=== PATIENT | female | born 1940 | race Caucasian/White ===

== ENCOUNTER 2016-11-29 16:46 | Emergency (ER) | payer MEDICARE, OTHER ==
[2016-11-29 17:09] LABS: Hematocrit 36 % (35-47); Hemoglobin 11.3 g/dl (12.0-16.0); Mean Corpuscular HGB Conc 32 g/dl (31-36); Mean Corpuscular Hemoglobin 22 pg (27-31); Mean Corpuscular Volume 70 fL (80-97); Mean Platelet Volume 9 um3 (7.4-10.4); Red Blood Count 5.16 10^6/ul (4.0-5.4); Red Cell Distribution Width 23 % (10.5-15); White Blood Count 13.2 10^3/ul (3.5-10.8)
[2016-11-29 17:10] LABS: Add Diff/Slide Review? Slide Review Added; Comments Flag Yes
[2016-11-29] MEDS ORDERED: Albuterol/Ipratropium NEB.SOL* Albuterol 2.5 MG/Ipratropium 0.5 MG 3 ML INH ONE (17:15)
[2016-11-29 17:27] LABS: Albumin 3.8 g/dL (3.2-5.2); BUN/Creatinine Ratio 19.3 (8-20); EGFR African American 86.2 (>60); Globulin 2.8 g/dL (2-4); Magnesium 1.9 mg/dL (1.9-2.7); Total Bilirubin 0.7 mg/dL (0.2-1.0); Total Protein 6.6 g/dL (6.4-8.9)
[2016-11-29 17:30] LABS: Troponin I 0.05 ng/mL (<0.04)
--- NOTE | 2016-11-29 17:41 | RAD ---
INDICATION: Midsternal chest pain COMPARISON: Most recent comparison chest x-rays dated June 05, 2016 TECHNIQUE: Single AP portable view of the chest was obtained. FINDINGS: Image quality is compromised due to the relative inferiority of a portable chest x-ray. Stable postoperative findings include a left upper chest cardiac pacemaker with 2 leads overlying the heart, plate and screw fixator overlying the cervical spine and transpedicular fixation rods overlying the thoracic spine. The heart and mediastinum exhibit normal size and contour. The lungs are grossly clear. There is bibasilar costophrenic angle blunting, slightly worse when compared to the previous chest x-ray. Visualized bones are normal for the patient's age. IMPRESSION: Slight increase in the size of the costophrenic angle blunting could be seen with worsening small pleural effusions.
[2016-11-29 17:54] LABS: Microcytosis 1+
[2016-11-29 17:59] LABS: TSH (Thyroid Stimulating Horm) 2.31 mcIU/mL (0.34-5.60)
[2016-11-29] MEDS ORDERED: Diltiazem IV VIAL* 125 MG in D5W 100 ML BAG* 100 ML IV ONE (18:25)
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
[2016-11-29 19:44] VITALS: BP 92/73
--- NOTE | 2016-11-30 01:49 | CONS ---
CONSULTATION REPORT: DATE OF CONSULT: 11/29/16 - EMERGENCY DEPT PRIMARY CARE PROVIDER: Dr. Quiroga. HEALTHCARE PROXY: Olivier Kuo, her son. CODE STATUS: Full. SERVICE REQUESTING CONSULTATION: ED, Dr. Schroeder. REASON FOR CONSULTATION: Tachycardia, elevated troponin. SOURCE OF INFORMATION: History obtained from interview with the patient and review of past medical records. RELIABILITY: Fair. HISTORY OF PRESENT ILLNESS: This is a 76-year-old female with past medical history of parkinsonism, although not definitely Parkinson's disease, atrial fibrillation, COPD on home oxygen 2 L when she does use it, LEILANI, been in her usual state of health notes that she fell 1 to 2 weeks ago and has been experiencing sharp substernal chest pain. Today, it lasted for approximately an hour and a half associated with what she describes as a little difficulty breathing, although no diaphoresis, no radiation, no nausea, vomiting, syncope, palpitations. She decided to present to the emergency room because the pain had continued and she decided to go get to the bottom of it. She is difficult to obtain majority of the history. She indicates, "I don't pay much attention" to the majority of her symptoms. Upon meeting this author, she indicated that she wanted to go home and she would not stay for an admission no matter what the conclusion of my evaluation was. PAST MEDICAL HISTORY: COPD, on home oxygen; parkinsonism; atrial fibrillation, on Coumadin; type 2 diabetes; hypothyroidism; depression; LEILANI; permanent pacemaker. Chart review indicates dementia, history of left hip ORIF and history of right hip ORIF. MEDICATIONS: The patient cannot indicate if these medications are active; however, had been reconciled inside of our computer. 1. Verapamil 120 mg 3 times daily. 2. MiraLAX 17 g daily. 3. Metoprolol XL 50 mg daily. 4. Senna one tab daily as needed. 5. Atorvastatin 20 mg daily. 6. Albuterol 2 puffs inhaled every 4 hours. 7. Zoloft 100 mg daily. 8. Potassium chloride 10 mEq daily. 9. Lasix 20 mg daily. 10. Coumadin 3 mg Sunday, Sunday, Sunday and 1.5 mg Sunday, Sunday, , Sunday. 11. Tiotropium one cap inhaled daily. 12. Omeprazole 20 mg daily. 13. Nystatin 5 mL 4 times daily. 14. Synthroid 50 mcg daily. 15. Sinemet one tab 4 times daily. 16. Tramadol 50 mg 4 times daily as needed. ALLERGIES: GABAPENTIN, PENICILLIN, AZITHROMYCIN, FENTANYL and RELATED, MIDAZOLAM. FAMILY HISTORY: Mother with CVA and atrial fibrillation, daughter with type 2 diabetes, and father with colon cancer. SOCIAL HISTORY: Quit tobacco 40 years prior, has 5-pack year history. No alcohol or illicits. Lives with her son. REVIEW OF SYSTEMS: Feels fatigued, otherwise no chest pain, shortness of breath , nausea, vomiting, lightheadedness, changes in vision, headaches, abdominal pain, diarrhea, constipation, cough, fevers, chills, night sweats, changes in weight. All other systems reviewed and negative. PHYSICAL EXAM: Vitals in the emergency room: 107/61, heart rate ranging from 102 to 120, although significant artifact given the patient's tremor, respiratory rate is 16, when seen by this author, T-max 98.5, 94% on room air. Sitting up in bed, interactive, no apparent distress. Oropharynx is clear, has moist mucous membranes. No thrush. Nonelevated JVD. No cervical or supraclavicular lymphadenopathy. She has an irregularly irregular heart rate that is tachycardic. Her lungs are clear to auscultation without rales, rhonchi , or wheezes. Her abdomen is soft, nontender, nondistended. Extremities are warm and well perfused without clubbing, cyanosis, or edema. She is alert and oriented x3 Cranial nerves II through XII are intact. She has a course tremor in the upper and lower extremities. She has no apparent agitation, anxiety, or depression. DIAGNOSTIC STUDIES/LAB DATA: Labs reviewed: White blood cell count 13.2. She has 79.9% neutrophils, hemoglobin 11.3, platelets 187. INR is 2.8. Potassium 4.0, BUN 16, creatinine 0.83, lactic acid 0.8, magnesium 1.9. Troponin I of 0.05 with a BNP 214. TSH is 2.3. Data reviewed: Chest x-ray, impression: Slightly increase in the size of the costophrenic angle blunting could be seen with worsening small pleural effusions compared to prior exam. EKG: There is a coarse tremor, is irregular , apparent atrial fibrillation, normal limit axis, late R-wave progression, no ST or T-wave changes. ASSESSMENT AND PLAN: This is a 76-year-old female with past medical history of atrial fibrillation, therapeutic on Coumadin, history of chronic obstructive pulmonary disease, type 2 diabetes, obstructive sleep apnea, presenting to the hospital with substernal chest pain in the setting of recent fall. In the setting of tachycardia as well as elevated troponin, I do believe this patient warrants continued observation to rule out myocardial infarction as well as better control of her heart rate. I discussed this at length with the patient. She currently is refusing hospital stay. We discussed at length the risks of leaving hospital including but not limited to myocardial infarction, sudden loss of consciousness, syncope, other broken bones, and . She is able to reiterate these risks and notes that she is not afraid of dying and does not want to stay in the hospital for continued treatment and management of her current medical conditions. I note that her health-care proxy is her son and I asked if I could discuss her decision with her son. She said I could talk to her son; however, explicitly forbade me from indicating my impression that she should remain hospitalized; therefore, I did not contact and discuss my findings with her son. I did discuss with the patient that leaving the hospital at this time would warrant leaving against medical advice, which she found an acceptable alternative to staying in the hospital. In lieu of staying in the hospital, the patient will leave AMA. I discussed the results of my interaction with Dr. Schroeder, who is in agreement with this author that the patient should remain hospitalized. However, I do believe she has full capacity at this time to make this decision and she will leave against medical advice. Extensive return to the emergency room instructions were given to the patient including worsening of symptoms, including chest pain, shortness of breath, nausea, vomiting, lightheadedness, palpitations, loss of consciousness, near loss of consciousness, or inability to obtain or tolerate medications. She acknowledged understanding. TIME SPENT: Greater than 60 minutes was spent in the consultation of this patient; greater than half was spent [id number] with the patient. CC: Dr. Quiroga * [id number]/CPS #: [id number] MTDD
== END 2016-11-29 19:10 | disposition left against medical advice (07) ==
LOC: ED 16:46
DX: I48.91 Unspecified atrial fibrillation (principal); J44.1 Chronic obstructive pulmonary disease with (acute) exacerbation; R07.9 Chest pain, unspecified; R06.02 Shortness of breath; R42 Dizziness and giddiness; Z87.891 Personal history of nicotine dependence; Z79.01 Long term (current) use of anticoagulants; Z53.21 Procedure and treatment not carried out due to patient leaving prior to being seen by health care provider
CPT/HCPCS: 36415; 71010; 80053; 82550; 82553; 83605; 83735; 83880; 84443; 84484; 85025; 85610; 93005; 94640; 94760; 99284; A9270-GY

== ENCOUNTER 2016-11-30 13:40 | Emergency (ER) | payer MEDICARE, OTHER ==
[2016-11-30 14:17] LABS: Hematocrit 38 % (35-47); Mean Corpuscular HGB Conc 32 g/dl (31-36); Mean Corpuscular Hemoglobin 22 pg (27-31); Mean Platelet Volume 9 um3 (7.4-10.4); Red Blood Count 5.39 10^6/ul (4.0-5.4); White Blood Count 10.5 10^3/ul (3.5-10.8)
[2016-11-30 14:36] LABS: Comments Flag Yes
--- NOTE | 2016-11-30 14:36 | RAD ---
INDICATION: Chest pain. COMPARISON: Comparison is made with prior studies from June 05, 2016 and November 29, 2016. TECHNIQUE: A portable view of the chest was obtained. FINDINGS: The heart is mildly enlarged and unchanged. There is a dual-chamber transvenous pacemaker present. The lungs are clear. There is a small left pleural effusion which appears unchanged. IMPRESSION: SMALL LEFT PLEURAL EFFUSION, UNCHANGED.
[2016-11-30 14:37] LABS: Mean Corpuscular Volume 70 fL (80-97); Red Cell Distribution Width 22 % (10.5-15)
[2016-11-30 14:38] LABS: ALT < 3 U/L (7-52); AST 14 U/L (13-39); Albumin 3.9 g/dL (3.2-5.2); Alkaline Phosphatase 84 U/L (34-104); Anion Gap 6 mmol/L (2-11); BUN/Creatinine Ratio 19.5 (8-20); Blood Urea Nitrogen 16 mg/dL (6-24); CO2 Carbon Dioxide 30 mmol/L (22-32); Calcium 9.2 mg/dL (8.6-10.3); Chloride 102 mmol/L (101-111); Creatine Kinase 41 U/L (10-223); EGFR African American 87.4 (>60); Globulin 3.1 g/dL (2-4); Glucose 93 mg/dL (70-100); Sodium 138 mmol/L (133-145)
[2016-11-30 14:58] LABS: T4 7.52 g/dL (6.09-12.23)
[2016-11-30 14:59] LABS: TSH (Thyroid Stimulating Horm) 1.91 mcIU/mL (0.34-5.60)
[2016-11-30 18:32] VITALS: BP 125/72
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
== END 2016-11-30 18:49 | disposition home or self-care (01) ==
LOC: ED 13:40
DX: R07.89 Other chest pain (principal); J90 Pleural effusion, not elsewhere classified; R06.02 Shortness of breath; R42 Dizziness and giddiness; R21 Rash and other nonspecific skin eruption; Z87.891 Personal history of nicotine dependence
CPT/HCPCS: 36415; 71010; 80053; 82550; 82553; 83605; 83735; 83880; 84436; 84443; 84484; 85025; 85610; 85730; 87529; 93005; 99284

== ENCOUNTER 2017-02-21 04:55 | Emergency (ER) | payer OTHER ==
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
[2017-02-21 06:26] VITALS: BP 137/67
--- NOTE | 2017-02-21 07:52 | RAD ---
INDICATION: Right shoulder pain after a fall from wheelchair COMPARISON: Similar radiographic series December 01, 2015 TECHNIQUE: 5 views of the right shoulder were obtained. FINDINGS: Similar to the previous radiograph, degenerative changes of the right shoulder include sclerotic narrowing of the articulating surface. There is marginal osteophyte formation mostly along the inferior margin of the right humeral head. Mild osteophyte formation is seen at the acromioclavicular joint. The bones are otherwise adequately corticated and appropriately aligned. IMPRESSION: DEGENERATIVE CHANGES OF THE RIGHT SHOULDER SIMILAR IN APPEARANCE TO THE PREVIOUS RADIOGRAPH WITHOUT ACUTE FRACTURE OR DISLOCATION. If the patient's symptoms persist, follow-up imaging is recommended.
--- NOTE | 2017-02-21 07:52 | RAD ---
HISTORY: Fall, trauma. No other history is provided COMPARISONS: January 14, 2016 TECHNIQUE: Multiple contiguous axial CT scans were obtained of the head without intravenous contrast. FINDINGS: HEMORRHAGE/INFARCT: There is no hemorrhage or acute infarct. MASSES/SHIFT: There is no mass or shift. EXTRA-AXIAL SPACES: There are no extra-axial fluid collections. SULCI AND VENTRICLES: The sulci and ventricles are normal in size and position for the patient's stated age. CEREBRUM: There are no focal parenchymal abnormalities. BRAINSTEM: There are no focal parenchymal abnormalities. CEREBELLUM: There are no focal parenchymal abnormalities. VESSELS: The vessels are grossly normal. PARANASAL SINUSES: The paranasal sinuses are clear. ORBITS: The orbits are unremarkable. BONES AND SOFT TISSUE: No bone or soft tissue abnormalities are noted. OTHER: None IMPRESSION: NO ACUTE INTRACRANIAL PATHOLOGY.
--- NOTE | 2017-02-21 07:54 | RAD ---
INDICATION: Trauma, pelvic pain. COMPARISON: Comparison is made with a prior x-ray study of the pelvis and left hip from April 05, 2016. TECHNIQUE: An AP view of the pelvis was obtained. FINDINGS: The patient is status post operative reduction of bilateral subcapital femoral neck fractures. There are 3 surgical pins present within each of the proximal femurs. No acute fracture is seen. There is moderate bilateral osteoarthritic change in the hips. The patient is status post posterior spinal fusion of the lumbar spine which is partially visualized on this study. Note is made of multiple pedicle screws. IMPRESSION: POSTSURGICAL CHANGES, NO EVIDENCE FOR ACUTE FRACTURE. IF THE PATIENT'S SYMPTOMS PERSIST RECOMMEND FOLLOW-UP IMAGING.
== END 2017-02-21 06:47 | disposition home or self-care (01) ==
LOC: ED 04:55
DX: S40.011A Contusion of right shoulder, initial encounter (principal); S70.01XA Contusion of right hip, initial encounter; S09.90XA Unspecified injury of head, initial encounter; W05.0XXA Fall from non-moving wheelchair, initial encounter; Y93.9 Activity, unspecified; Y92.9 Unspecified place or not applicable; Y99.9 Unspecified external cause status
CPT/HCPCS: 70450; 72170; 99283

== ENCOUNTER 2017-04-07 11:02 | Emergency (ER) | payer OTHER ==
[2017-04-07 11:44] LABS: Hematocrit 37 % (35-47); Hemoglobin 11.7 g/dl (12.0-16.0); Mean Corpuscular HGB Conc 32 g/dl (31-36); Mean Corpuscular Hemoglobin 25 pg (27-31); Mean Corpuscular Volume 78 fL (80-97); Mean Platelet Volume 10 um3 (7.4-10.4); Red Blood Count 4.69 10^6/ul (4.0-5.4); Red Cell Distribution Width 18 % (10.5-15); White Blood Count 8.1 10^3/ul (3.5-10.8)
[2017-04-07 11:48] LABS: Urine Bacteria 1+ (Absent); Urine Bilirubin Negative (Negative); Urine Glucose Negative (Negative); Urine Nitrite Positive (Negative)
[2017-04-07 12:03] LABS: Albumin 3.9 g/dL (3.2-5.2); BUN/Creatinine Ratio 12.8 (8-20); C Reactive Protein 5.02 mg/L (< 5.00); Calcium 9.1 mg/dL (8.6-10.3); EGFR African American 92.6 (>60); Globulin 2.7 g/dL (2-4); Potassium 3.8 mmol/L (3.5-5.0); Total Bilirubin 0.7 mg/dL (0.2-1.0); Total Protein 6.6 g/dL (6.4-8.9)
[2017-04-07] MEDS ORDERED: Ciprofloxacin 400MG IVPREMIX(* 400 MG/200 ML BAG IVPB ONE (12:12)
[2017-04-07 12:20] LABS: TSH (Thyroid Stimulating Horm) 1.79 mcIU/mL (0.34-5.60)
[2017-04-07] MEDS ORDERED: Ketorolac INJ* 30 MG/ML 1 ML VIAL IV PUSH ONE (13:02)
--- NOTE | 2017-04-07 13:32 | RAD ---
Indication: Chest pain, right shoulder pain. 4 views of the right shoulder demonstrates degenerative changes of the glenohumeral joint without evidence of dislocation. No definite fractures identified. When compared to previous exam of February 21, 2017 no significant change is noted. IMPRESSION: No fracture. Degenerative changes of the glenohumeral joint.
--- NOTE | 2017-04-07 13:34 | RAD ---
Indication: Bilateral knee pain Single AP standing, tunnel, patellofemoral views and lateral views of both knees are reviewed. The right knee demonstrates joint space narrowing in the lateral part. Mild valgus deformity is noted. Osteophyte formation is noted. No joint effusion in the left knee is noted. Degenerative changes of the patellofemoral joint is present. The left knee demonstrates joint space narrowing in the lateral compartment with slight lateral subluxation of the tibia. Chondrocalcinosis is noted. Valgus deformity is noted. No fracture is noted. Small joint effusion is noted. IMPRESSION: Degenerative changes of the lateral compartment of both knees. Degenerative changes of the patellofemoral joint. No fracture is identified.
--- NOTE | 2017-04-07 13:37 | RAD ---
Indication: Chest pain. 2 views of the chest are reviewed. Pacemaker leads are in place. Heart is of normal size and configuration. Hyperinflated lung mario are noted. Small left pleural effusion is noted. Posterior rodding is noted. IMPRESSION: Pacemaker leads in place. Small left pleural effusion.
[2017-04-07 16:13] VITALS: BP 123/68
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
== END 2017-04-07 16:11 | disposition home or self-care (01) ==
LOC: ED 11:02
DX: N39.0 Urinary tract infection, site not specified (principal); M25.562 Pain in left knee; M25.561 Pain in right knee; I10 Essential (primary) hypertension; Z95.810 Presence of automatic (implantable) cardiac defibrillator; E11.9 Type 2 diabetes mellitus without complications; I48.91 Unspecified atrial fibrillation; J44.9 Chronic obstructive pulmonary disease, unspecified; Z79.01 Long term (current) use of anticoagulants; Z79.899 Other long term (current) drug therapy; Z88.0 Allergy status to penicillin; Z88.1 Allergy status to other antibiotic agents; Z88.5 Allergy status to narcotic agent; Z88.8 Allergy status to other drugs, medicaments and biological substances; Z87.891 Personal history of nicotine dependence
CPT/HCPCS: 36415; 71020; 80053; 81003; 81015; 84443; 84484; 85025; 86140; 87086; 93005; 96365; 96375; 99283; J0744; J1885

== ENCOUNTER 2017-04-19 13:57 | Emergency (ER) | payer OTHER ==
--- NOTE | 2017-04-19 15:01 | RAD ---
INDICATION: Altered mental status. COMPARISON: Comparison is made with a prior CT of the brain from February 21, 2017. TECHNIQUE: Contiguous axial sections of the brain were obtained from the skull base to the vertex without contrast. FINDINGS: The ventricles, cisterns and sulci are enlarged consistent with diffuse atrophy. No significant focal abnormality or mass effect is seen. There is no evidence for hemorrhage. No significant focal osseous abnormality is seen. The visualized portion of the paranasal sinuses and mastoid air cells appear clear. IMPRESSION: NO EVIDENCE FOR GROSS ACUTE INFARCT, MASS EFFECT OR HEMORRHAGE.
[2017-04-19 16:41] LABS: Hematocrit 38 % (35-47); Hemoglobin 11.9 g/dl (12.0-16.0); Mean Corpuscular HGB Conc 32 g/dl (31-36); Mean Corpuscular Hemoglobin 24 pg (27-31); Mean Corpuscular Volume 77 fL (80-97); Mean Platelet Volume 10 um3 (7.4-10.4); Red Blood Count 4.87 10^6/ul (4.0-5.4); Red Cell Distribution Width 18 % (10.5-15); White Blood Count 8.1 10^3/ul (3.5-10.8)
[2017-04-19 17:20] LABS: Calcium 9.5 mg/dL (8.6-10.3); EGFR African American 87.4 (>60); Globulin 2.8 g/dL (2-4); Potassium 3.4 mmol/L (3.5-5.0); Total Bilirubin 0.5 mg/dL (0.2-1.0); Total Protein 6.8 g/dL (6.4-8.9)
[2017-04-19 18:54] LABS: Urine Bacteria 1+ (Absent); Urine Bilirubin Negative (Negative); Urine Glucose Negative (Negative); Urine Nitrite Negative (Negative)
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
[2017-04-19 20:00] VITALS: BP 121/69
== END 2017-04-19 20:10 | disposition home or self-care (01) ==
LOC: ED 13:57
DX: F03.90 Unspecified dementia, unspecified severity, without behavioral disturbance, psychotic disturbance, mood disturbance, and anxiety (principal); F05 Delirium due to known physiological condition; E11.9 Type 2 diabetes mellitus without complications; E07.9 Disorder of thyroid, unspecified; I10 Essential (primary) hypertension; Z95.0 Presence of cardiac pacemaker; Z79.01 Long term (current) use of anticoagulants; J44.9 Chronic obstructive pulmonary disease, unspecified; K59.00 Constipation, unspecified; Z88.0 Allergy status to penicillin; F41.9 Anxiety disorder, unspecified; F32.9 Major depressive disorder, single episode, unspecified; Z88.8 Allergy status to other drugs, medicaments and biological substances; Z87.891 Personal history of nicotine dependence
CPT/HCPCS: 36415; 70450; 80053; 81003; 81015; 83605; 84484; 85025; 87077; 87086; 87186; 93005; 99283

== ENCOUNTER 2018-02-16 23:39 | Observation (INO) | payer OTHER ==
[2018-02-17] MEDS ORDERED: Albuterol/Ipratropium NEB.SOL* Albuterol 2.5 MG/Ipratropium 0.5 MG 3 ML INH ONE ×2 (00:48→00:51)
[2018-02-17] MEDS ORDERED: methylPREDNISolone 125 MG* 2 ML VIAL IV ONE (00:48)
[2018-02-17] MEDS ORDERED: Azithromycin IV(*) 500 MG in NS 0.9% 250 ML* 250 ML IVPB ONE (00:50)
[2018-02-17 01:04] LABS: ABS Basophils 0.1 10^3/ul (0-0.2); ABS Eosinophils 0.2 10^3/ul (0-0.6); ABS Lymphocytes 1.6 10^3/ul (1.0-4.8); ABS Monocytes 0.6 10^3/ul (0-0.8); ABS Neutrophils 6.2 10^3/ul (1.5-7.7); ABS Nucleated RBC 0 10^3/ul; Eosinophil % 2.1 % (0-6); Hematocrit 38 % (35-47); Hemoglobin 12.3 g/dl (12.0-16.0); Lymphocyte % 18.2 % (25-47); Mean Corpuscular HGB Conc 33 g/dl (31-36); Mean Corpuscular Hemoglobin 25 pg (27-31); Mean Corpuscular Volume 76 fL (80-97); Mean Platelet Volume 9.2 um3 (7.4-10.4); Nucleated Red Blood Cells % 0; Platelet Count 203 10^3/ul (150-450); Red Blood Count 5.01 10^6/ul (4.00-5.40); Red Cell Distribution Width 19 % (10.5-15); White Blood Count 8.7 10^3/ul (3.5-10.8)
[2018-02-17 01:13] LABS: INR 2.65 (0.77-1.02)
[2018-02-17 01:21] LABS: EGFR Non-African American 69.7 (>60)
[2018-02-17] MEDS ORDERED: Ondansetron ODT TAB* 4 MG SL PRN (01:44)
[2018-02-17] MEDS ORDERED: Ondansetron ODT TAB* 4 MG ONE (02:01)
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
[2018-02-17] MEDS ORDERED: Senna TAB PO PRN (03:36)
[2018-02-17] MEDS ORDERED: Nystatin TOP POWDER* 15 GM BTL TOPICAL PRN (03:36)
[2018-02-17] MEDS ORDERED: traMADol TAB* 50 MG PO PRN (03:36)
[2018-02-17] MEDS: methylPREDNISolone SOD 40 MG* 1 ML VIAL IV SCH ×2 (03:41→16:51)
[2018-02-17] MEDS ORDERED: Azithromycin IV(*) 500 MG in D5W 250 ML BAG* 250 ML IVPB SCH (04:00)
[2018-02-17] MEDS ORDERED: Albuterol 2.5 MG/3 ML NEB.SOL* (0.083%) INH PRN (04:26)
[2018-02-17] MEDS: Levothyroxine TAB* 50 MCG TAB PO SCH (05:02)
[2018-02-17] MEDS: cefTRIAXone(*) 1 GM in NS 0.9% 50 ML* 50 ML IVPB SCH (05:02)
[2018-02-17] MEDS ORDERED: Heparin VIAL(*) 5000 UNITS/ML VIAL (FIVE THOUSAND) SUBCUT SCH (06:00)
[2018-02-17 06:34] LABS: INR 2.63 (0.77-1.02)
[2018-02-17 06:59] LABS: EGFR Non-African American 67.8 (>60)
--- NOTE | 2018-02-17 07:05 | RAD ---
INDICATION: Short of breath COMPARISON: April 07, 2017 TECHNIQUE: PA and lateral dual-energy views were obtained. FINDINGS: Bones/Soft Tissues: There are no acute bony findings. There are Wu rods. There is prior cervical fusion. There is a left-sided cardiac pacemaker Cardiomediastinal: The cardiomediastinal silhouette is unchanged. The cardiac silhouette is mildly prominent. Lungs: There are no acute infiltrates. There is hyperinflation. Pleura: There are no pleural effusions. Other: None IMPRESSION: POSTOPERATIVE CHANGES. HYPERINFLATION. NO ACTIVE DISEASE.
[2018-02-17] MEDS: Budesonide NEB* 0.25 MG/2 ML NEB.SOLN INH SCH ×2 (08:49→19:12)
[2018-02-17] MEDS: Tiotropium CAP.INH* CAP.INH/18 MCG (USE ORDER SET !) INH SCH (08:51)
[2018-02-17] MEDS ORDERED: Spiriva Inhaler DEVICE* 1 EACH DEVICE INH ONE (09:00)
[2018-02-17] MEDS: Sertraline* 100 MG TAB PO SCH (09:03)
[2018-02-17] MEDS: Carbidopa/Levodop 25/100 MG TAB(*) PO SCH ×4 (09:03→20:13)
[2018-02-17] MEDS: Metoprolol Succinate XL TAB* 50 MG PO SCH (09:03)
[2018-02-17] MEDS: Furosemide TAB* 40 MG PO SCH (09:03)
[2018-02-17] MEDS: Verapamil TAB* 120 MG PO SCH ×3 (09:03→20:14)
[2018-02-17] MEDS: Omeprazole CAP* 20 MG PO SCH (09:03)
[2018-02-17] MEDS: Nystatin SUSPENSION* 100000 UNITS/ML 5 ML UDC PO SCH ×4 (09:04→20:17)
[2018-02-17] MEDS: Potassium Chlor TAB* 10 MEQ TAB.ER PO SCH (09:04)
[2018-02-17] MEDS: Polyethylene Glycol 3350* 17 GM PACKET PO SCH (09:04)
--- NOTE | 2018-02-17 10:50 | HP ---
CC: Dr. Quiroga * HISTORY AND PHYSICAL: DATE OF ADMISSION: 02/17/18 CHIEF COMPLAINT: Shortness of breath. HISTORY OF PRESENT ILLNESS: Ms. Restrepo is a 77-year-old woman with history of COPD who developed progressive shortness of breath over the last 24 hours prior to admission. She reports she has had a cough, which has been productive as well as some nausea. She also reports right-sided chest pain which is mild, may be 2 or 3/10, which has improved now in the emergency department. Earlier though she had right-sided pleuritic chest pain. She also felt feverish but did not a thermometer at home. The patient denies any sick contacts. The patient has not had any benefit from using her albuterol at home. PAST MEDICAL HISTORY: Includes, 1. COPD. 2. Parkinson's disease. 3. Hypothyroidism. 4. GERD. 5. Dementia. 6. Tachybrady syndrome, implanted pacemaker placement. 7. Restless legs syndrome. 8. Diet-controlled diabetes. PAST SURGICAL HISTORY: 1. Cervical fusion. 2. Lumbar laminectomy. 3. Bilateral ORIF of her hips. MEDICATIONS: On admission are: 1. Albuterol inhaler 2 puffs q.4 hours p.r.n. 2. Atorvastatin 20 mg p.o. q.p.m. 3. Pulmicort nebulizer 0.25 mg inhaled b.i.d. 4. Carbidopa-levodopa 25/100 one tab p.o. four times a day. 5. Furosemide 40 mg p.o. daily. 6. Levothyroxine 50 mcg p.o. q.a.m. 6. Toprol-XL 50 mg p.o. daily. 7. Metronidazole topical to her face b.i.d. 8. Mometasone topical 0.1% cream as needed. 9. Nystatin liquid 5 mL swish and swallow p.r.n. for thrush. 10. Nystatin topical powder to affected areas t.i.d. p.r.n. 11. Omeprazole 20 mg p.o. daily. 12. Potassium chloride 10 mEq p.o. daily. 13. Pramipexole 0.5 mg p.o. q.p.m. 14. Senna 1 tab p.o. daily p.r.n. constipation. 15. Sertraline 100 mg p.o. daily. 16. Spiriva 1 inhalation daily. 17. Tramadol 50 mg p.o. q.6 hours p.r.n. pain. 18. Verapamil 120 mg p.o. t.i.d. 19. Warfarin 3 mg 1 p.o. daily 1 day on week on Sundays and 1.5 mg p.o. q.p.m. on 6 days of week. 20. She has Desitin ointment as needed. ALLERGIES: AZITHROMYCIN, FENTANYL, GABAPENTIN, MIDAZOLAM and PENICILLIN. FAMILY HISTORY: Notable for father of [place]. Father also had liver cancer. Mother of heart failure. Sister had breast cancer. SOCIAL HISTORY: She is . She has six children. Lives with her son, Olivier, who is her healthcare proxy. She quit tobacco four to five years ago. No alcohol or drug use. REVIEW OF SYSTEMS: The patient denies any anorexia, weight loss. The patient denies any peripheral edema. Does have chest pain as above. The patient denies any hemoptysis. The patient has shortness of breath and cough. The patient denies any nausea, vomiting, diarrhea, constipation, or any abdominal pain. A 14-point review of systems was completed, other than mentioned in the HPI. PHYSICAL EXAMINATION GENERAL: She is an elderly woman in no acute distress. VITAL SIGNS: Temperature is 36.8, pulse 74, respirations 16, blood pressure is 153/84, O2 sat is 99% on 2 L. HEENT: Head is normocephalic and atraumatic. Sclerae anicteric. Pupils equally round, reactive to light and accommodation. Oropharynx is moist. No lesions. NECK: No JVD, no carotid bruits, no thyromegaly. LUNGS: Clear to auscultation but diminished throughout. HEART: Regular. No murmurs or gallops. ABDOMEN: Soft, nontender. Positive bowel sounds. No hepatosplenomegaly. EXTREMITIES: No peripheral edema. Dorsalis pedis pulses are 1+ bilaterally. NEUROLOGIC: Cranial nerves II through XII are intact. Her speech is slow and quiet. She has resting tremor in both arms and legs. She is neurologically oriented to herself, to the hospital but not to which hospital. She feels it is Sunday. DIAGNOSTIC STUDIES/LABORATORY DATA: Sodium 143, potassium 4.0, chloride 108, bicarb 27, BUN 19, creatinine 0.08, glucose 115, calcium 9.5, albumin 4.0. AST of 14, ALT 8, bilirubin 0.4, BNP 256. INR 2.65, PTT of 43.4. White count 8.7, hemoglobin 12.3, hematocrit 38%, platelets of 203. EKG shows atrial fibrillation, LVH, left axis deviation, old anterior TX. Chest x-ray shows hyperinflation. No infiltrate. The [place] is present in the thoracic spine and has a pacemaker visible in left upper chest. ASSESSMENT AND PLAN: 1. A 77-year-old woman presenting with chronic obstructive pulmonary disease exacerbation. The patient will be admitted to the hospital and treated with nebulizers, oxygen supplementation, IV steroids, and IV antibiotics. She was given Zosyn and azithromycin in the ER, which she is listed to be allergic to, seems to be tolerating it well now. I will switch her to ceftriaxone for the inpatient stay. There is a risk of cross-reaction with penicillin allergy, but this can be monitored. 2. The patient has pleuritic chest pain. She could have a pulmonary embolism, although she is on warfarin which should reduce that chance very greatly. I will order a D-dimer to be added on and if that is positive, she should have a CT angiogram of her chest. Otherwise, it is likely there is pleurisy from viral or bacterial lung infection. 3. The patient's fluid and electrolytes appears to be euvolemic. Normal electrolytes. 4. Code status is do not resuscitate. MOLST form was filled out and the patient can sign this or her son can sign when he comes in tomorrow. 5. DVT prophylaxis is not necessary given she will be remaining on warfarin. [id number]/[facility] #: [id number] [facility]ITALDil[facility]
[2018-02-17] MEDS ORDERED: Atorvastatin* 20 MG TAB PO SCH ×2 (17:00→21:00)
[2018-02-17] MEDS ORDERED: Warfarin TAB(*) 3 MG PO SCH (17:00)
[2018-02-17] MEDS ORDERED: Pramipexole TAB* 0.5 MG PO SCH (21:00)
[2018-02-18] MEDS: methylPREDNISolone SOD 40 MG* 1 ML VIAL IV SCH (04:23)
[2018-02-18] MEDS: Levothyroxine TAB* 50 MCG TAB PO SCH (04:26)
[2018-02-18] MEDS: cefTRIAXone(*) 1 GM in NS 0.9% 50 ML* 50 ML IVPB SCH (05:08)
[2018-02-18 07:20] LABS: INR 3.75 (0.77-1.02)
[2018-02-18] MEDS: Budesonide NEB* 0.25 MG/2 ML NEB.SOLN INH SCH (07:36)
[2018-02-18] MEDS: Tiotropium CAP.INH* CAP.INH/18 MCG (USE ORDER SET !) INH SCH (07:37)
[2018-02-18] MEDS: Polyethylene Glycol 3350* 17 GM PACKET PO SCH (10:16)
[2018-02-18] MEDS: Carbidopa/Levodop 25/100 MG TAB(*) PO SCH ×2 (10:17→12:59)
[2018-02-18] MEDS: Potassium Chlor TAB* 10 MEQ TAB.ER PO SCH (10:17)
[2018-02-18] MEDS: Metoprolol Succinate XL TAB* 50 MG PO SCH (10:17)
[2018-02-18] MEDS: Omeprazole CAP* 20 MG PO SCH (10:17)
[2018-02-18] MEDS: Nystatin SUSPENSION* 100000 UNITS/ML 5 ML UDC PO SCH ×2 (10:18→12:59)
[2018-02-18] MEDS: Sertraline* 100 MG TAB PO SCH (10:18)
[2018-02-18] MEDS: Furosemide TAB* 40 MG PO SCH (10:18)
[2018-02-18] MEDS: Verapamil TAB* 120 MG PO SCH (10:19)
[2018-02-18 12:16] VITALS: BP 127/56
[2018-02-18] MEDS ORDERED: Warfarin TAB(*) 1 MG PO SCH (17:00)
== END 2018-02-18 13:50 | disposition home or self-care (01) ==
LOC: ED 23:39 → MED 02-17 07:38 → UNDOADMOB 02-17 07:48 → MED 02-17 07:48
PROVIDERS: ADMIT Internal Medicine; ATTEND Internal Medicine
DX: J44.1 Chronic obstructive pulmonary disease with (acute) exacerbation (principal); R07.81 Pleurodynia; G20 Parkinson's disease; F02.80 Dementia in other diseases classified elsewhere, unspecified severity, without behavioral disturbance, psychotic disturbance, mood disturbance, and anxiety; E03.9 Hypothyroidism, unspecified; K21.9 Gastro-esophageal reflux disease without esophagitis; Z95.0 Presence of cardiac pacemaker; G25.81 Restless legs syndrome; E11.9 Type 2 diabetes mellitus without complications; I48.91 Unspecified atrial fibrillation; Z79.01 Long term (current) use of anticoagulants; Z79.899 Other long term (current) drug therapy; Z87.891 Personal history of nicotine dependence; Z88.0 Allergy status to penicillin; Z88.1 Allergy status to other antibiotic agents; Z88.5 Allergy status to narcotic agent; Z88.8 Allergy status to other drugs, medicaments and biological substances; I10 Essential (primary) hypertension
CPT/HCPCS: 36415; 71046; 80048; 80053; 83880; 84443; 84484; 85025; 85379; 85610; 85730; 93005; 94640; 96365; 96367; 96375; 96376; 99283; A9270-GY; G0378; J0456; J0696; J2920; J2930

== ENCOUNTER 2018-05-27 12:50 | Emergency (ER) | payer OTHER ==
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
--- OUTSIDE RECORDS SUMMARY | 2018-05-27 13:38 | XMS REPORT ---
:1940 External Reference #:[id number] Author Organization [employer] Address [address] [place] [address] [place] [address] Phone [phone] Care Team Providers Name Role Phone Madi Quiroga MD Primary Care Physician Unavailable Payers Type Date Identification Payment Provider Subscriber Numbers Health Maintenance Effective: Policy Number: [facility] Medicare Zuly Restrepo Organization (HMO) 12/25/2002 [id number] Solutions Group Number: [id number] [address] [address] PayID: [id number] [place] [address] [facility] Part B Policy Number: [id number] Medicaid Zuly Restrepo Group Name: 1 1 [address] PayID: [id number] [place] [address] Problems Date Description Provider Status Onset: 05/28/2013 Atrial fibrillation Oren Lopez M.D. Active Onset: 05/28/2013 Cardiac pacemaker in situ Oren Lopez M.D. Active Onset: 06/29/2014 Chest pain Jerry Mccann M.D., Active JEROD GUZMAN Onset: 08/10/2014 Aortic valve disorder Jerry Mccann M.D., Active FACMelissa, JEROD Onset: 09/21/2015 Sinus node dysfunction Jerry Mccann M.D., Active THOMAS, JEROD Onset: 01/06/2016 Fx unsp part of nk of r femmendel, subs Brandon Garcia M.D. Active for clos fx w routn heal Onset: 05/15/2018 Electrocardiogram abnormal Jerry Mccann M.D., Active FACC, JEROD Onset: 05/15/2017 Mild dementia Michael Vicente MD Active Onset: 10/11/2016 Parkinson's disease Michael Vicente MD Active Onset: 09/04/2016 Chronic atrial fibrillation Jerry Olmos Mccann, M.D., Active [facility] Family History Date Family Member(s) Problem(s) Comments General Colon Cancer Social History Type Date Description Comments Lives With Son Occupation Retired ETOH Use Denies alcohol use Smoking Patient is a former smoker quit smoking cigarettes 20year ago. 1997 quite Recreational Drug Use Denies Drug Use Daily Caffeine Consumes on average 1 cup of once week regular coffee per day Exercise Type/Frequency Does not exercise Allergies, Adverse Reactions, Alerts Date Description Reaction Status Severity Comments 05/28/2013 Penicillin confusion/swelling active 05/28/2013 Benzoin active 05/28/2013 Zithromax confusion active 07/15/2014 Depo-Medrol active 07/15/2014 Neurontin active 07/15/2014 Wool active per pt Medications Medication Date Status Form Strength Qnty SIG Indications Ordering Provider Carbidopa-Levodo 03/12 Active Tablets 25-100mg 120ta 2 by mouth Michael bs in in the [place]inthia, morning, 1 MD by mouth in afternoon, and 1 by mouth in the pm. Verapamil HCL 08/05 Active Tablets 120mg 270ta 1 tab by Jerry bs mouth @ Nickolas Mccann M.D., [facility] Proair HFA Active 90mcg 2 puffs q 4 Mecca, /0000 hrs prn MD Gabriel Flovent Diskus Active Aerosol 100mcg/Bl 60uni 1 puff bid Larry , /0000 ist ts MD Gabriel Warfarin Sodium Active Tablets 3mg 60tab 1 tablet Galyanova /0000 s sun wed and , 08/28 franklyn Lozano thu, MD r,fri,sat as directed [facility] [place] Levothyroxine Active Tablets 50mcg 1 po qd Unknown Sodium /0000 Tramadol HCL Active Tablets 50mg 100ta 1 tb po bid Unknown bs Am/PM and 1 tab po at bedtime Multivitamins Active Capsules 30cap 1 capsule Unknown /0000 s ginger;y Metoprolol Active Tablets ER 100mg 1/2 by Unknown Succinate ER /0000 24HR mouth every day Metronidazole Active Cream 0.75% apply once Unknown 0000 daily Budesonide Active Suspension 0.25mg/2M 1 unit nebl Unknown L twice a day Desitin Active ointment Unknown Mometasone Active Cream 0.1% apply to Unknown Fur affected areas twice a day Nystatin Active Suspension 686240Ucm 5 mL by Unknown t/ML mouth four times daily Polyethylene Active Packet 3350NF 1 pkt by Unknown Glycol 3350 /0000 mouth daily Senokot Active Tablets 8.6mg 1 tablet po Unknown as needed Spiriva Active Capsules 18mcg 1 unit Unknown Handihaler inhalation daily Sertraline HCL Active Tablets 100mg 1 by mouth Unknown every day Metoprolol 06/28 Hx Tablets ER 50mg 1 by mouth Jerry Succinate 24HR every day Nickolas Mccann, 08/07 M.D. FACC, JEROD Metoprolol 11/18 Hx Tablets ER 100mg 30tab 1 by mouth Jerry Succinate 24HR s every day Nickolas Mccann, 06/28 M.D., FACC, JEROD Diltiazem HCL CD 11/18 Hx Caps ER 360mg 90cap 1 po qd 24HR s Nickolas Mccann 08/05 M.D. FAC, JEROD Lorazepam Hx Tablets 0.5mg 30tab take 1 s tablet as - needed for 08/31 every 8 hours Vitamin B-1 Hx Tablets 100mg 90tab once a day s - 08/15 Furosemide Hx Tablets 20mg 2 tablet po Galyanova daily ( , - increased Randee 05/14 dose) , /[address] 1000mg po Unknown / - 09/[address] 20mg 90cap 1 po qd Unknown s - 05/14 Klor-Con M10 Hx Tablets ER 10Meq 30tab 1 po qd Unknown / s - 10/11 Citalopram Hx Tablets 40mg 90tab 1/2 po qd Unknown Hydrobromide s - 09/01 Diphenhydramine Hx Capsules 50mg 120ca take one Unknown HCL /0000 ps capsule by - mouth bid 09/03 Pramipexole Hx Tablets 0.5mg 30tab take 1 Unknown Dihydrochloride /0000 s tablet po - qhs 05/15 Simvastatin Hx Tablets 10mg 90tab 1 by mouth Unknown /0000 s every night - at bedtime 08/07 Zyrtec Allergy Hx Capsules 10mg 30cap 1 by mouth Unknown /0000 s every day - 09/21 Hydrocodone-Acet Hx Tablets 5-325mg 2 po prn Unknown aminophen /0000 - 09/01 Atorvastatin Hx Tablets 10mg 90tab 1/2 by Unknown Calcium /0000 s mouth every - day 09/[address] 60mg 30cap 1 by mouth Unknown /0000 Part s every day - 09/02 Simvastatin Hx Tablets 10mg take 1 Unknown /0000 tablet by - mouth at 09/03 bed Sertraline HCL Hx Tablets 100mg 1 by mouth Unknown /0000 every day - 05/15 Carbidopa-Levodo Hx Tablets 25-100mg 90tab 2 q am ,1 q David S. pa /0000 s afternoon Anil, - and 1 @ M.DYecenia 03/12 Atorvastatin Hx Tablets 20mg take 1 Unknown Calcium /0000 tablet at - daily 05/14 Potassium Hx Capsules ER 10Meq 1 by mouth Unknown Chloride ER /0000 every day - 05/14 Tylenol PM Hx Tablets take as Unknown /0000 prescribed - on bottle 05/14 as needed pain Medications Administered in Office Medication Date Status Form Strength Qnty SIG Indications Ordering Provider Technetium TC Administered Injection Oren Carver 99M 014 Monica Lopez, Per Unit Dose Up To 40 Millicuries Technetium TC Administered Injection Renée 99M 014 Urszula Wilson M.D. Per Unit Dose Up To 40 Millicuries Vital Signs Date Vital Result Comment 05/15/2018 Weight 150.50 lb Heart Rate 74 /min BP Systolic Sitting 112 mmHg lue lg cuff BP Diastolic Sitting 62 mmHg lue lg cuff Respiratory Rate 18 /min Ejection Fraction 55-60% 12/02/2015 echo 05/15/2017 Weight 165.00 lb Heart Rate 76 /min BP Systolic Sitting 120 mmHg BP Diastolic Sitting 82 mmHg 03/12/2017 Heart Rate 78 /min BP Systolic Sitting 122 mmHg BP Diastolic Sitting 80 mmHg 10/11/2016 Heart Rate 88 /min BP Systolic Sitting 130 mmHg BP Diastolic Sitting 90 mmHg 09/04/2016 BP Systolic 88 mmHg Rue reg cuff Sit BP Diastolic 70 mmHg Rue reg cuff Sit BP Systolic Sitting 94 mmHg Lue reg cuff Sit BP Diastolic Sitting 70 mmHg Lue reg cuff Sit BP Systolic Standing 90 mmHg Lue reg cuff Stand BP Diastolic Standing 62 mmHg Lue reg cuff Stand 09/21/2015 Height 65 inches 5'5" Weight 199.00 lb Heart Rate 76 /min BP Systolic Sitting 116 mmHg Ra reg cuff BP Diastolic Sitting 74 mmHg Ra reg cuff Respiratory Rate 18 /min BMI (Body Mass Index) 33.1 kg/m2 Ejection Fraction 55-60% 08/06/15 08/10/2014 Height 66 inches 5'6" Weight 194.00 lb BP Systolic Sitting 102 mmHg left arm reg cuff BP Diastolic Sitting 78 mmHg left arm reg cuff BP Systolic Standing 98 mmHg left arm reg cuff BP Diastolic Standing 74 mmHg left arm reg cuff Respiratory Rate 20 /min BMI (Body Mass Index) 31.3 kg/m2 06/29/2014 Height 66 inches 5'6" Weight 194.00 lb per PCP note Heart Rate 64 /min regular BP Systolic Sitting 100 mmHg left arm reg cuff BP Diastolic Sitting 72 mmHg left arm reg cuff BP Systolic Standing 98 mmHg left arm reg cuff BP Diastolic Standing 76 mmHg left arm reg cuff Respiratory Rate 18 /min BMI (Body Mass Index) 31.3 kg/m2 08/18/2013 Height 66 inches 5'6" Weight 191.00 lb with shoes Heart Rate 62 /min reg BP Systolic Sitting 100 mmHg L arm reg cuff BP Diastolic Sitting 80 mmHg L arm reg cuff BP Systolic Standing 100 mmHg L arm reg cuff BP Diastolic Standing 72 mmHg L arm reg cuff Respiratory Rate 17 /min BMI (Body Mass Index) 30.8 kg/m2 05/28/2013 Height 66 inches 5'6" Weight 177.00 lb Heart Rate 60 /min BP Systolic Sitting 120 mmHg R arm reg cuff BP Diastolic Sitting 82 mmHg R arm reg cuff BP Systolic Standing 128 mmHg R arm ref cuff BP Diastolic Standing 80 mmHg R arm ref cuff Respiratory Rate 17 /min BMI (Body Mass Index) 28.6 kg/m2 Results Test Date Test Result H/L Range Note Inr/Protime 02/17/2018 Inr 2.63 High 0.77-1.02 Laboratory test 02/17/2018 D Dimer Quantitative < 200 ng/mL Less Than 230 1 finding Basic Metabolic 02/17/2018 Sodium 143 mmol/L 135-145 Panel Potassium 3.8 mmol/L 3.5-5.0 Chloride 106 mmol/L 101-111 Co2 Carbon Dioxide 29 mmol/L 22-32 Anion Gap 8 mmol/L 2-11 Glucose 160 mg/dL High 70-100 Blood Urea Nitrogen 18 mg/dL 6-24 Creatinine 0.82 mg/dL 0.51-0.95 BUN/Creatinine Ratio 22.0 High 8-20 Calcium 9.1 mg/dL 8.6-10.3 Egfr Non- 67.8 >60 Egfr 82.0 >60 2 Laboratory test 02/17/2018 TSH (Thyroid Stim 0.99 mcIU/mL 0.34-5.60 finding Horm) Surgical Pathology 05/19/2013 S RUN DATE: <SEE NOTE> 1 Please note: The following may produce a false positive D Dimer test: - Rheumatoid factor greater than 60 IU/ml - Plasma hemoglobin greater than 0.05 gm/dl - Bilirubin greater than 50 mg/dl - Lipids greater than 1000 mg/dl - FDP greater than 20 ug/ml 2 Because ethnic data is not always readily available, this report includes an eGFR for both -Americans and non- Americans. The National Kidney Disease Education Program (NKDEP) does not endorse the use of the MDRD equation for patients that are not between the ages of 18 and 70, are , have extremes of body size, muscle mass, or nutritional status, or are non- or non-. According to the National Kidney Foundation, irrespective of diagnosis, the stage of the disease is based on the level of kidney function: Stage Description GFR(mL/min/1.73 m(2)) 1 Kidney damage with normal or decreased GFR 90 2 Kidney damage with mild decrease in GFR 60-89 3 Moderate decrease in GFR 30-59 4 Severe decrease in GFR 15-29 5 Kidney failure <15 (or dialysis) 3 RUN DATE: 05/20/13 [facility] LAB LIVE PAGE 1 RUN TIME: [address] [place], [place] [address] Specimen Inquiry Name: ZULY RESTREPO : [address]: Oren Lopez MD Acct: [id number] Unit: [id number] AGE: 72 Location: [facility] Re05/19/13 SEX: F Status: REG REF SPEC: [id number] PHIL: 05/19/13- SUBM DR: Oren Lopez MD REQ: [id number] RECD: 05/19/13914 STATUS: SOUT _ ORDERED: LEVEL I FINAL DIAGNOSIS Pacemaker generator: Foreign body (pacemaker generator) (Gross diagnosis). PRE-OPERATIVE DIAGNOSIS Sinus node dysfunction GROSS DESCRIPTION The specimen is received fresh labeled Zuly Restrepo, Pacemaker Generator , and consists of a metallic and plastic pacemaker generator battery measuring 5.3 x 4.3 cm. by up to 0.9 cm. labelled IS1 compatible, [facility], [place], [place], [place] victory trademark [id number] DDDR Serial number [id number]. Per established hospital medical staff protocol no tissue is submitted. Gross only. Signed (signature on file) Paco Traylor MD 1629 END OF REPORT * ML=Testing performed at Main Lab DEPARTMENT OF PATHOLOGY, [address] [place] [address] Paco Traylor M.D. Director [facility] Permit #[id number] Procedures Date CPT Code Description Status 05/15/2018 86252 EKG Tracing & Interpretation Completed 02/15/2018 41854 Pace Maker Eval W/Iterative Adjment Dual Lead Completed 02/15/2018 65063 Pace Maker Eval W/Iterative Adjment Dual Lead Completed 08/14/2017 22295 Pace Maker Eval W/Iterative Adjment Dual Lead Completed 08/14/2017 32373 Pace Maker Eval W/Iterative Adjment Dual Lead Completed 01/29/2017 17736 Pace Maker Eval W/Iterative Adjment Dual Lead Completed 09/04/2016 42245 EKG Tracing & Interpretation Completed 08/16/2016 28913 Pace Maker Eval W/Iterative Adjment Dual Lead Completed 12/05/2015 12447 Percutaneous TX Of Femoral FX Completed 12/02/2015 39758 ECHO Transthorasic Realtime 2D W Doppler & Color Flow Completed Hosp 09/21/2015 05693 EKG Tracing & Interpretation Completed 08/06/2015 44717 ECHO Transthoracic, Real-Time 2D With Doppler And Color Completed Flow 05/24/2015 72706 Interrogation Device Eval In Person W/ Completed Analysis,Single,Dual,Mul 12/01/2014 61296 Pace Maker Eval W/Iterative Adjment Dual Lead Completed 11/09/2014 34361 ECHO Transthorasic Realtime 2D W Doppler & Color Flow Completed Hosp 07/29/2014 29461 Pace Maker Eval W/Iterative Adjment Dual Lead Completed 07/28/2014 67971 Stress Test Completed 07/28/2014 75548 Myocardial Perfusion Imaging Tomographic (Spect) Completed Multiple Studies 07/28/2014 85609 Myocardial Perfusion Imaging Tomographic (Spect) Completed Multiple Studies 07/21/2014 34016 ECHO Transthoracic, Real-Time 2D With Doppler And Color Completed Flow 06/29/2014 90183 EKG Tracing & Interpretation Completed 02/05/2014 17639 Pace Maker Eval W/Iterative Adjment Dual Lead Completed 08/07/2013 41303 Pace Maker Eval W/Iterative Adjment Dual Lead Completed 07/28/2013 35797 Rad Exam; Hip Unilat Completed 07/28/2013 04505 Rad Exam; Pelvis Completed 05/21/2013 19410 Rad Exam; Pelvis Completed 05/21/2013 56113 Rad Exam; Hip Unilat Completed 05/21/2013 32406 Rad Exam; Hip Unilat Comp Completed 05/19/2013 62778 Removal With Replacement Dual Lead System Pulse Completed Generator 04/25/2013 54531 Percutaneous TX Of Femoral FX Completed 03/26/2013 44157 Interrogation Device Eval In Person W/DR Completed Analysis,Single,Dual,Mul 01/09/2013 71328 EKG Tracing & Interpretation Completed 12/19/2012 39819 Pace Maker Eval W/Iterative Adjustment Single Lead Completed 11/19/2012 86254 Interrogation Device Eval In Person W/DR Completed Analysis,Single,Dual,Mul 09/17/2012 01446 Pace Maker Eval W/Iterative Adjment Dual Lead Completed 09/09/2012 20531 EKG, Interpretation Only Completed 08/30/2012 68746 EKG Tracing & Interpretation Completed 08/01/2012 70146 EKG, Interpretation Only Completed 08/01/2012 79847 EKG, Interpretation Only Completed 07/25/2012 76908 EKG, Interpretation Only Completed 07/25/2012 95788 EKG, Interpretation Only Completed 07/25/2012 66062 EKG, Interpretation Only Completed 07/24/2012 69124 Color Flow Doppler/Interp & Reprt Completed 07/24/2012 48798 Pulse Wave/Continuous-Interp.RPT Completed 07/24/2012 84404 Echocardiography, Transesophageal, Real Time W/Image 2D Completed W/W/O M-M 07/23/2012 83744 EKG, Interpretation Only Completed 07/23/2012 21876 EKG, Interpretation Only Completed 07/22/2012 93755 ECHO Transthorasic Realtime 2D W Doppler & Color Flow Completed Hosp 07/22/2012 32128 ECHO Transthorasic Realtime 2D W Doppler & Color Flow Completed Hosp 07/22/2012 01968 EKG, Interpretation Only Completed 07/22/2012 14368 EKG, Interpretation Only Completed 10/01/2009 25994 EKG, Interpretation Only Completed Encounters Type Date Location Provider CPT E/M Dx Office Visit 02/17/2018 [facility], Davion Rosas, 7[address] J44.1 9:17a Hospitalists Monica,FACP R07.9 Office Visit 05/15/2017 11:00a [facility] [address] G20 F03.90 F02.80 Office Visit 03/12/2017 1:45p [facility] [place] [address] G20 Z79.899 Office Visit 10/11/2016 2:15p [facility] [place] [address] G20 Office Visit 09/04/2016 11:15a [facility] Jerry Mccann, 99695 I48.2 Monica, FAC, FASNC Z95.0 Office Visit 06/08/2016 11:02a [facility], Nyasia Last, 86396 J44.1 Hospitalists D.O. I48.0 E11.9 G20 Office Visit 06/07/2016 11:01a [facility],andrew Last, 30074 J44.1 Hospitalists D.O. I48.0 E11.9 G20 Office Visit 06/06/2016 11:47a [facility] [place] [address] G21.9 F03.90 Office Visit 06/06/2016 11:01a [facility], Nyasia Last, 20511 J44.1 Hospitalists D.O. I48.0 E11.9 G20 Office Visit 06/05/2016 11:45a [facility] [place] [address] G21.9 F03.90 Office Visit 06/05/2016 11:00a [facility],andrew Last, 30671 J44.1 Hospitalists D.O. I48.0 E11.9 G20 Office Visit 06/04/2016 11:00a [facility],pc Davion Rosas, 97061 G20 Hospitalists MAbhishek,FACP J44.1 I48.0 Office Visit 06/03/2016 1:17p [facility], Davion Rosas, 78616 G20 Hospitalists MAbhishek,FACP J44.1 I48.0 Office Visit 06/02/2016 1:16p [facility],pc Parris Lamb, 74966 J44.1 Hospitalists MAbhishek I48.0 G20 E11.9 Office Visit 06/01/2016 11:44a [facility] Caleb eKnny, 68917 G21.9 M.D. Office Visit 06/01/2016 1:16p [facility], Parris Lamb, 96961 J44.1 Hospitalists Monica I48.0 G20 Office Visit 05/31/2016 1:15p [facility] Alea Vega, 99381 J44.1 Assoc, NEONATAL ICU COORDINATOR Hospitalists I48.0 G20 E11.9 Office Visit 04/21/2016 10:59a [facility],pc Nyasia Last, 91204 J44.1 Hospitalists D.O. R44.3 G20 Office Visit 04/20/2016 10:59a [facility],pc Nyasia Last, 62754 J44.1 Hospitalists D.O. R44.3 G20 Office Visit 04/19/2016 10:58a [facility],pc Parris Lamb, 98559 J44.1 Hospitalists M.D. R44.3 Office Visit 04/18/2016 10:58a [facility], Parris Lamb, 01471 J44.1 Hospitalists M.D. Office Visit 12/08/2015 10:08a [facility],[place] [address] J44.9 Hospitalists I48.91 S72.001A I10 Office Visit 12/07/2015 [facility] Alea Vega, 17071 I48.91 10:08a Assoc,pc NEONATAL ICU COORDINATOR Hospitalists J44.9 S72.001A I10 Office Visit 12/06/2015 10:07a Luz Maria Cosby Gary, 55018 J44.9 Assoc,pc NEONATAL ICU COORDINATOR Hospitalists I48.91 S72.001A I10 Office Visit 12/05/2015 10:06a [facility],pc Britney Guerra, NEONATAL ICU COORDINATOR 21477 J44.9 Hospitalists I48.91 S72.001A I10 Office Visit 12/04/2015 10:06a [facility],pc Britney Guerra, NEONATAL ICU COORDINATOR 41860 J44.9 Hospitalists I48.91 S72.001A I10 Office Visit 12/03/2015 10:05a [facility],pc Britney Guerra, NEONATAL ICU COORDINATOR 57452 J44.9 Hospitalists I48.91 S72.001A I10 Office Visit 12/02/2015 10:04a Luz Maria Cosby [place], 47507 J44.9 Assoc,pc NEONATAL ICU COORDINATOR Hospitalists I48.91 S72.001A I10 Office Visit 12/01/2015 10:03a [facility],pc Rios Robison, 68844 J44.9 Hospitalists N.P. I48.91 S72.001A I10 Office Visit 09/21/2015 1:30p [facility] Jerry Olmos 17358 I49.5 Monica Mccann, [facility] Office Visit 11/09/2014 3:44p [facility] David Zhao 33612 780.97 Monica Ma 427.31 780.97 Office Visit 11/09/2014 9:54a [facility],pc Matthew Layne, 60695 434.91 Hospitalsherri Anderson 427.31 780.97 599.0 Office Visit 11/08/2014 9:51a [facility],pc Lilia Calabrese N.Pauline 08937 434.91 Hospitalists 780.97 599.0 427.31 Office Visit 08/10/2014 11:30a [facility] Nickolas Mccann, 01892 424.1 [facility] Monica, [facility] 786.50 Office Visit 06/29/2014 12:00p [facility] Jerry Olmos Mccann, 77366 786.50 Monica, [facility] Office Visit 04/19/2014 2:33p [facility],pc Kathy Preston, 78195 491.22 Hospitalists Petey 427.31 Office Visit 04/18/2014 2:31p [facility] Davion Rosas, 79129 491.22 Assoc, Hospitalists M.D. Hospitalist 427.31 Office Visit 08/18/2013 12:00p [facility] Olmos Mccann, 55998 V45.01 [facility] Monica, [facility] 427.31 Office Visit 07/28/2013 1:15p [facility] Sim Ramos M.D. 11164 820.8 Of C.M.A. Office Visit 05/02/2013 7:14p [facility] Baysonia Golden , 69860 427.31 Assoc,pc Hospitalists MYeceniaDYecenia 492.8 820.8 V45.01 Office Visit 05/01/2013 7:13p [facility],pc Parris Lamb, 19949 427.31 Hospitalists M.DYecenia 492.8 820.8 V45.01 Office Visit 04/30/2013 7:13p [facility],pc Parris Lamb, 62339 427.31 Hospitalists M.DYecenia 492.8 820.8 V45.01 Office Visit 04/30/2013 10:35a [facility] David Ma, 51656 333.94 Services Of Moriah Anderson V45.89 Office Visit 04/29/2013 7:12p [facility],pc Parris Lamb, 75677 427.31 Hospitalists M.DYecenia 492.8 820.8 V45.01 Office Visit 04/28/2013 7:11p [facility],pc Parris Lamb, 49369 427.31 Hospitalists MYeceniaDYecenia 492.8 820.8 V45.01 Office Visit 04/27/2013 7:10p [facility],pc Parris Lamb, 04705 427.31 Hospitalists M.DYecenia 492.8 820.8 V45.01 Office Visit 04/26/2013 7[facility]p [facility] David Lomax 30006 427.31 Hospitalists Monica Omalley 492.8 820.8 V45.01 Office Visit 04/25/2013 7:08p [facility] Cathi Munguiahn, 64896 427.31 Assoc, Hospitalsherri Anderson 492.8 820.8 V45.01 Office Visit 04/25/2013 7:00a [facility] Of Sim Ramos M.D. 28899 820.8 C.M.A. Office Visit 01/09/2013 9:15a [facility] Jerry Mccann, 71017 427.31 Monica, [facility] Office Visit 09/08/2012 3:08p [facility] Lilia Calabrese, N.P. 47626 481 Hospitalists 427.31 780.97 491.20 Office Visit 09/07/2012 3:08p [facility], Lilia Calabrese, N.P. 68957 481 Hospitalists 427.31 780.97 491.20 Office Visit 08/30/2012 3:00p [facility] Mccann, 48620 427.31 Moriah Anderson, THOMAS, [facility] Office Visit 07/25/2012 2:35p [facility] Davion Rosas, 38473 427.31 Assoc, Hospitalsherri Anderson Hospitalist 333.99 427.81 V45.01 Office Visit 07/24/2012 2:46p [facility] Mccann, 99771 427.31 Moriah Anderson, THOMAS, [facility] 427.81 427.31 Office Visit 07/24/2012 2:35p [facility] Davion Rosas, 12992 427.31 Assoc, Hospitalists Monica Hospitalist 333.99 427.81 Office Visit 07/23/2012 3:39p [facility] Mccann, 76350 427.31 Moriah Anderson, THOMAS, [facility] 427.81 Office Visit 07/23/2012 2:34p [facility] Davion Rosas, 88293 427.31 Assoc,pc Hospitalists M.DYecenia Hospitalist 427.81 333.99 Office Visit 07/22/2012 2:34p [facility] Placido Sousa, 86840 427.31 Assoc,pc Hospitalists MAbhishek 427.81 333.99 V45.01 Office Visit 10/23/2009 3:00a [facility] Parris Adonis, 72050 427.31 Hospitalists MAbhishek 964.2 Office Visit 10/22/2009 2:45a [facility] Assoc, Parris Adonis, 35312 964.2 Hospitalists MAbhishek 427.31 496 285.9 Office Visit 10/21/2009 3:15a [facility] Assoc, Parris Adonis, 26090 964.2 Hospitalists M.DYecenia Office Visit 10/04/2009 2:45a [facility], Wilfred Sauceda, 60233 255.41 Hospitalists Monica 496 401.9 427.31 Office Visit 10/03/2009 2:30a [facility], Wilfred Sauceda, 93370 255.41 Hospitalists MAbhishek 496 244.9 427.31 V45.01 Office Visit 10/02/2009 1:45a [facility], Wilfred Sauceda M.D. 76907 496 Hospitalists 427.31 401.9 255.41 Office Visit 10/01/2009 2:30a [facility], Wilfred Sauceda M.D. 44393 496 Hospitalists 401.9 427.31 255.41 Office Visit 09/30/2009 2:30a [facility] Wilfred Sauceda, 94468 276.51 Hospitalists MYeceniaDYecenia 401.9 458.9 255.41 496 427.31 Office Visit 09/29/2009 3:00a [facility] Wilfred Sauceda, 76009 276.51 Hospitalists MYeceniaDYecenia 401.9 780.79 427.31 496 Plan of Care 05/15/2018 - Jerry Mccann M.D., [facility], [id number] Abnormal electrocardiogram [ECG] [EKG]New Orders:Nuclear Lexiscan MyoviewComments:As discussed, your heart seems stable. We will recheck your echo and chemical stress test next year.Follow up:after NLM and echoI48.2 Chronic atrial fibrillationNew Orders:Echocardiogram
--- NOTE | 2018-05-27 13:47 | RAD ---
HISTORY: Back pain COMPARISONS: February 17, 2018 VIEWS: 1: frontal AP view of the chest at 1:35 PM FINDINGS: LINES AND TUBES: A left-sided pacemaker is noted. CARDIOMEDIASTINAL SILHOUETTE: The cardiomediastinal silhouette is stable. PLEURA: The costophrenic angles are sharp. No pleural abnormalities are noted. LUNG PARENCHYMA: The lungs are clear. ABDOMEN: The upper abdomen is clear. There is no subphrenic gas. BONES AND SOFT TISSUES: The patient is status post spinal stabilization surgery. The patient is status post anterior cervical fusion. IMPRESSION: NO ACTIVE CARDIOPULMONARY DISEASE.
[2018-05-27 13:54] LABS: ABS Basophils 0 10^3/ul (0-0.2); ABS Eosinophils 0.1 10^3/ul (0-0.6); ABS Lymphocytes 1.4 10^3/ul (1.0-4.8); ABS Monocytes 0.5 10^3/ul (0-0.8); ABS Neutrophils 4.9 10^3/ul (1.5-7.7); ABS Nucleated RBC 0 10^3/ul; Eosinophil % 1.6 % (0-6); Hematocrit 39 % (35-47); Hemoglobin 12.8 g/dl (12.0-16.0); Lymphocyte % 20.1 % (25-47); Mean Corpuscular HGB Conc 32 g/dl (31-36); Mean Corpuscular Hemoglobin 24 pg (27-31); Mean Corpuscular Volume 75 fL (80-97); Mean Platelet Volume 9.1 um3 (7.4-10.4); Nucleated Red Blood Cells % 0; Platelet Count 196 10^3/ul (150-450); Red Blood Count 5.24 10^6/ul (4.00-5.40); Red Cell Distribution Width 20 % (10.5-15); White Blood Count 6.9 10^3/ul (3.5-10.8)
[2018-05-27 14:00] LABS: INR 2.18 (0.77-1.02)
[2018-05-27 14:15] LABS: EGFR Non-African American 75.1 (>60)
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
[2018-05-27 14:26] LABS: Urine Appearance Cloudy; Urine Blood Negative (Negative); Urine Color Yellow; Urine Ketones Negative (Negative); Urine Protein 1+(30 mg/dL) (Negative); Urine Red Blood Cell 3+(>10/hpf) (Absent); Urine Specific Gravity 1.012 (1.010-1.030); Urine Urobilinogen Negative (Negative); Urine White Blood Cell 3+(>20/hpf) (Absent)
--- NOTE | 2018-05-27 15:33 | RAD ---
CLINICAL HISTORY: left flank pain COMPARISON: None TECHNIQUE: Multiple contiguous axial CT scans were obtained of the abdomen and pelvis, without intravenous contrast enhancement. Coronal and sagittal multiplanar reformations are submitted for review. Oral contrast was not administered. FINDINGS: Evaluation is limited due to the lack of intravenous contrast. This limits evaluation of the solid organs and vasculature. LUNG BASES: There is linear atelectasis of the right lung base. LIVER: The liver is normal in shape, size, contour, and attenuation. BILE DUCTS: There is no intrahepatic or extrahepatic biliary dilatation. GALLBLADDER: Multiple gallstones are noted. There is no pericholecystic inflammatory change. PANCREAS: The pancreas is normal, without mass or ductal dilatation. SPLEEN: Normal in size and appearance. UPPER GI TRACT: Evaluation of the gastrointestinal tract is limited by incomplete gastric distention. The upper GI tract is unremarkable. SMALL BOWEL AND MESENTERY: The small bowel is normal in contour, course, and caliber. There is no obstruction or dilatation. COLON: The colon is normal in contour, course, caliber. There is no pericolonic inflammatory change. ADRENALS: Normal bilaterally. 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 There is a 1.2 similar calculus of the left renal pelvis that has increased in size from the previous examination. There is mild perinephric stranding on the left. BLADDER: The bladder is smooth in contour. PELVIC ORGANS: There is a stable cystic lesion of the left hemipelvis, unchanged from the 2016 examination. AORTA: There is atherosclerosis of the abdominal aorta with stable mild aneurysmal dilatation of the infrarenal abdominal aorta. IVC: Unremarkable LYMPH NODES: There is no lymphadenopathy by size criteria. ABDOMINAL WALL: There is no evidence for abdominal wall hernia. BONES AND SOFT TISSUES: There is diffuse osteopenia. The patient is status post internal fixation of the femurs bilaterally. The patient is status post spinal stabilization surgery. OTHER: None IMPRESSION: 1. HORSESHOE KIDNEY. 2. 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 3. CHOLELITHIASIS. 4. ATHEROSCLEROSIS WITH STABLE AND IS MINIMAL DILATATION OF THE ABDOMINAL AORTA. 5. STABLE CYSTIC LESION OF THE LEFT HEMIPELVIS.
[2018-05-27] MEDS ORDERED: Ciprofloxacin 400MG IVPREMIX(* 400 MG/200 ML BAG IVPB ONE (15:50)
[2018-05-27 18:13] VITALS: BP 117/81
--- NOTE | 2018-05-30 13:49 | PN ---
Progress Note - Progress Note Date of Service: 05/27/18 Note: Patient was called at 2 PM on 05/30/18 Spoke with patient's son Patient will discontinue ciprofloxacin as this is resistant to the organism She was placed on Macrobid twice a day 5 days which is sensitive to organism Son states he will picker operator medication from the pharmacy Nothing further at this time
== END 2018-05-27 18:12 | disposition home or self-care (01) ==
LOC: ED 12:50
DX: N20.1 Calculus of ureter (principal); K80.20 Calculus of gallbladder without cholecystitis without obstruction; Q63.1 Lobulated, fused and horseshoe kidney; J98.11 Atelectasis; I70.0 Atherosclerosis of aorta; M89.9 Disorder of bone, unspecified; Z87.891 Personal history of nicotine dependence; Z95.0 Presence of cardiac pacemaker; Z88.8 Allergy status to other drugs, medicaments and biological substances; Z88.0 Allergy status to penicillin; Z88.3 Allergy status to other anti-infective agents
CPT/HCPCS: 36415; 71045; 74176; 80053; 81003; 81015; 83605; 85025; 85610; 86140; 87040; 87077; 87086; 87186; 96374; 99283; J0744

== ENCOUNTER 2018-10-05 16:25 | Inpatient (IN) | payer MEDICARE, OTHER ==
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
[2018-10-05 16:58] LABS: ABS Basophils 0.1 10^3/ul (0-0.2); ABS Eosinophils 0.1 10^3/ul (0-0.6); ABS Lymphocytes 1.4 10^3/ul (1.0-4.8); ABS Monocytes 0.5 10^3/ul (0-0.8); ABS Neutrophils 3.7 10^3/ul (1.5-7.7); ABS Nucleated RBC 0 10^3/ul; Eosinophil % 2.1 %; Hematocrit 40 % (35-47); Hemoglobin 12.5 g/dl (12.0-16.0); Lymphocyte % 24.1 %; Mean Corpuscular HGB Conc 32 g/dl (31-36); Mean Corpuscular Hemoglobin 24 pg (27-31); Mean Corpuscular Volume 76 fL (80-97); Nucleated Red Blood Cells % 0; Platelet Count 197 10^3/ul (150-450); Red Cell Distribution Width 18 % (10.5-15); White Blood Count 5.8 10^3/ul (3.5-10.8)
[2018-10-05 17:03] LABS: INR 2.11 (0.77-1.02)
[2018-10-05 17:14] LABS: Albumin 4.3 g/dL (3.2-5.2); Albumin/Globulin Ratio 1.7 (1-3); BUN/Creatinine Ratio 19.7 (8-20); Calcium 9.7 mg/dL (8.6-10.3); EGFR African American 89.5 (>60); Globulin 2.6 g/dL (2-4); Potassium 4.1 mmol/L (3.5-5.0); Total Bilirubin 0.7 mg/dL (0.2-1.0); Total Protein 6.9 g/dL (6.4-8.9)
[2018-10-05 17:19] LABS: CKMB ng/mL 1.2 ng/mL (0.6-6.3)
[2018-10-05 18:09] LABS: TSH (Thyroid Stimulating Horm) 2.86 mcIU/mL (0.34-5.60)
[2018-10-05 18:18] LABS: Urine Appearance Cloudy; Urine Bacteria Absent (Absent); Urine Bilirubin Negative (Negative); Urine Blood 1+ (Negative); Urine Color Yellow; Urine Glucose Negative (Negative); Urine Ketones Negative (Negative); Urine Nitrite Negative (Negative); Urine Protein 1+(30 mg/dL) (Negative); Urine Red Blood Cell 3+(>10/hpf) (Absent); Urine Specific Gravity 1.013 (1.010-1.030); Urine Squamous Epithelial Cell Present (Absent); Urine Urobilinogen Negative (Negative); Urine White Blood Cell 3+(>20/hpf) (Absent)
[2018-10-05] MEDS ORDERED: NS 0.9% 1000 ML** 1,000 ML IV ONE (21:08)
[2018-10-05] MEDS ORDERED: Nitrofurantoin Macrocrystals* 100 MG CAP PO ONE (21:25)
[2018-10-05] MEDS ORDERED: HYDROcodone/ACETAMIN 5-325 MG* 1 TAB PO ONE (22:18)
[2018-10-05] MEDS ORDERED: Albuterol HFA INHALER* 8 gm MDI INH PRN (22:53)
[2018-10-05] MEDS ORDERED: Warfarin TAB(*) 1 MG PO SCH (23:00)
[2018-10-05] MEDS ORDERED: Warfarin TAB(*) 3 MG PO SCH (23:00)
[2018-10-06] MEDS: Levofloxacin 500 MG IVPREMIX(* 500 MG/100 ML BAG IVPB SCH (00:35)
--- NOTE | 2018-10-06 00:50 | HP ---
CC: Dr. Madi Quiroga HISTORY AND PHYSICAL: DATE OF ADMISSION: 10/05/18 PRIMARY CARE DOCTOR: Dr. Madi Quiroga. CHIEF COMPLAINT: Feeling lightheadedness, decreased appetite, and shortness of breath. HISTORY OF PRESENT ILLNESS: A 77-year-old female with past medical history of COPD, hypothyroidism, atrial fibrillation, tachy-kaleb syndrome, who now presents to the emergency room because of complaints of shortness of breath, decreased appetite, and feeling lightheaded. The patient reports that for the past 2 to 3 days she has been having shortness of breath with decreased appetite , and she just feels unright, so decided to come to the emergency room. She was having subjective fevers and chills at home, and she is also having cough with white to yellow colored sputum production. When she coughs, she feels as if her chest is heavy. There is no associated chest pain or palpitations. She is having some nausea; however, no vomiting. She also reports burning with urination; however, no urinary hesitancy or increase in frequency. PAST MEDICAL HISTORY: 1. COPD. 2. Parkinson disease. 3. Hypothyroidism. 4. GERD. 5. Dementia. 6. Tachy-kaleb syndrome, status post pacemaker placement. 7. Restless legs syndrome. 8. Diet-controlled diabetes. PAST SURGICAL HISTORY: Includes: 1. Cervical fusion. 2. Lumbar laminectomy. 3. Bilateral ORIF of her hips. MEDICATIONS: Home medications include: 1. Multivitamins 1 tablet daily. 2. Fluconazole 150 mg daily. 3. Albuterol ProAir 2 puffs every 4 hours as needed. 4. Coumadin 2.5 mg as well as 1.5 mg. 5. Carbidopa/levodopa 25/100 mg 4 times a day. 6. Tramadol 50 mg every 6 hours as needed. 7. Tiotropium 1 capsule inhaled daily. 8. Zoloft 100 mg daily. 9. Metoprolol succinate 50 mg daily. 10. Colace 50 mg at bedtime. 11. Verapamil 120 mg daily. 12. Levothyroxine 50 mcg daily. ALLERGIES: Include GABAPENTIN which causes anaphylaxis, PENICILLIN which causes anaphylaxis, ALOE VERA, AZITHROMYCIN, BENZOCAINE, ERGOCALCIFEROL, FENTANYL, MIDAZOLAM, VITAMIN A, VITAMIN E. FAMILY HISTORY: Father: [place], liver cancer. Mother: Congestive heart failure. Sister: Breast cancer. SOCIAL HISTORY: She lives at home. She is . Her son is her healthcare proxy. She is a former smoker. No alcohol use. The patient reports that her son Olivier is the healthcare proxy. She wishes to be a do not resuscitate. REVIEW OF SYSTEMS: She is having subjective fevers with chills. No changes in her vision or hearing. No sore throat. For cardiovascular as well as pulmonary , see HPI. She is having no abdominal pain, no vomiting, no diarrhea, though she is having nausea. She has baseline Parkinson dementia with currently no headaches, no neurological deficits. She does have rash in her face as well as her torso, for which she is taking fluconazole. PHYSICAL EXAMINATION GENERAL: This is a well-developed, well-nourished, elderly female, lying in an ER stretcher, in no acute distress. VITAL SIGNS: Blood pressure of 134/96, saturation of 94% on room air, respiratory rate of 18, pulse of 97, temperature of 98.4 Fahrenheit. HEENT: Pupils are equal, round, reactive to light. There is no JVD. There is no oropharyngeal erythema. LUNGS: There is mild tachypnea with no use of accessory muscles. There is rhonchi heard at the right lower lung field. HEART: No chest wall tenderness. Regular rate and rhythm. No murmurs. ABDOMEN: Bowel sounds are normoactive in all 4 quadrants. Abdomen is soft, nontender, nondistended. EXTREMITIES: There is no lower extremity edema. No calf tenderness. Radial pulse 2+ bilaterally. NEUROLOGIC: Alert and oriented x3 with no focal neurological deficits. Resting tremor noted. SKIN: There are areas of scaly erythematous plaques on the face as well as the torso. DIAGNOSTIC STUDIES/LAB DATA: Sodium of 141, glucose of 103, BUN of 15, creatinine of 0.76, AST of 17, ALT of 4, BNP of 463. TSH of 2.86, INR of 2.11. Urine shows positive for 3+ wbc, squamous cells are present. WBC of 5.8, hemoglobin of 12.5, hematocrit of 40, platelets of 197. The patient underwent an EKG which showed atrial fibrillation. The patient also ended up having a brain CT, which showed no evidence for acute infarct abnormality. Chest x-ray showed there is a nodular infiltrate at the right lung base. Consider CT of the chest imaging for further evaluation. There was a small left pleural effusion. CT of the chest shows mild emphysema with subtle right upper lobe finding suggestive of possible early pneumonia and left pleural effusion and bibasilar lung volume loss. IMPRESSION AND PLAN: 1. Findings suggestive of right upper lobe pneumonia: At this point, we will start the patient on Levaquin based on her PENICILLIN and AZITHROMYCIN allergy. We will order a sputum culture. Blood cultures had been sent. We will also get urine legionella antigen as well as urine strep antigen. I will order blood cultures. 2. Possible urinary tract infection, although there is squamous cell present. Levaquin will cover this as well. 3. History of atrial fibrillation: Continue verapamil, metoprolol, Coumadin. Monitor INR, goal INR between 2 and 3. 4. Chronic obstructive pulmonary disease: Currently does not appear to be in chronic obstructive pulmonary disease exacerbation. Continue home dose Spiriva. Continue albuterol as needed. 5. Parkinson dementia: Continue carbidopa/levodopa. 6. Unspecified hypothyroidism: Continue levothyroxine. 7. At this point, I will withhold IV fluids on the patient as she does have slightly elevated BNP. Encourage oral hydration. Additionally, the patient is having findings suggestive of right upper lobe pneumonia, is elderly, is having dementia and Parkinson's, so I will also order a swallowing evaluation. Monitor patient's daily INR. Follow up on the blood cultures. 8. Regular diet. 9. Activity as tolerated. [id number]/CPS #: [id number] MTDD
[2018-10-06] MEDS: Levothyroxine TAB* 50 MCG TAB PO SCH (05:31)
[2018-10-06 06:33] LABS: ABS Basophils 0 10^3/ul (0-0.2); ABS Eosinophils 0.1 10^3/ul (0-0.6); ABS Lymphocytes 1.1 10^3/ul (1.0-4.8); ABS Monocytes 0.6 10^3/ul (0-0.8); ABS Neutrophils 5.2 10^3/ul (1.5-7.7); ABS Nucleated RBC 0 10^3/ul; Eosinophil % 1.6 %; Hematocrit 38 % (35-47); Lymphocyte % 15.7 %; Mean Corpuscular HGB Conc 32 g/dl (31-36); Mean Corpuscular Hemoglobin 25 pg (27-31); Mean Corpuscular Volume 77 fL (80-97); Mean Platelet Volume 9.2 fL (7.4-10.4); Nucleated Red Blood Cells % 0.1; Platelet Count 182 10^3/ul (150-450); Red Blood Count 4.91 10^6/ul (4.00-5.40); Red Cell Distribution Width 17 % (10.5-15); White Blood Count 7.1 10^3/ul (3.5-10.8)
[2018-10-06 06:51] LABS: INR 1.95 (0.77-1.02)
[2018-10-06] MEDS ORDERED: Albuterol/Ipratropium NEB.SOL* Albuterol 2.5 MG/Ipratropium 0.5 MG 3 ML INH PRN (08:44)
[2018-10-06] MEDS: Tiotropium CAP.INH* CAP.INH/18 MCG (USE ORDER SET !) INH SCH (08:53)
[2018-10-06] MEDS ORDERED: Fluconazole 150 MG TAB PO SCH (09:00)
[2018-10-06] MEDS ORDERED: Spiriva Inhaler DEVICE* 1 EACH DEVICE INH ONE (09:00)
[2018-10-06] MEDS: Multivitamins/Minerals TAB PO SCH (09:01)
[2018-10-06] MEDS: Metoprolol Succinate XL TAB* 50 MG PO SCH (09:01)
[2018-10-06] MEDS: Sertraline* 100 MG TAB PO SCH (09:01)
[2018-10-06] MEDS: Carbidopa/Levodop 25/100 MG TAB(*) PO SCH ×4 (09:01→20:57)
[2018-10-06] MEDS: Verapamil TAB* 120 MG PO SCH (09:01)
[2018-10-06] MEDS: Clotrimazole 1% CREAM* 45 GM TOPICAL SCH (11:26)
[2018-10-06] MEDS: CMCS - Oral Rinse (Biotene)(NF) 237 ML or 473 ML ORAL RINSE BTL MT SCH ×4 (11:26→20:57)
--- NOTE | 2018-10-06 11:29 | PN ---
Subjective Date of Service: 10/06/18 Interval History: Patient is still feeling very poorly today. Patient states she has some residual shortness of breath but feels as if it may be improving. Patient stated her scalp hurts but that that happens often and resolves without intervention. Patient denies F/C, N/V, abdominal pain, diarrhea, dysuria, dysphagia, CP. Patient has no orthopnea, nocturia, but does have GARZA when walking across a room which improves with rest. Patient has been having stable symptoms of Parkinson's. Patient complains of a very dry mouth. Family History: Unchanged from Admission Social History: Unchanged from Admission Past Medical History: Unchanged from Admission Objective Active Medications: Albuterol/Ipratropium (Duoneb (Albuterol 2.5 Mg/Ipratropium 0.5 Mg)) 1 neb INH Q6H PRN PRN Reason: SOB/WHEEZING Carbidopa/Levodopa (Sinemet 25/100 Tab(*)) 1 tab PO QID [facility] Last Admin: 10/06/18 09:01 Dose: 1 tab Clotrimazole (Clotrimazole 1%*) 1 applic TOPICAL DAILY [facility] Docusate Sodium (Colace Cap*) 100 mg PO BEDTIME [facility] Fluconazole (Diflucan 150 Mg Tab*) 150 mg PO DAILY [facility] Last Admin: 10/06/18 09:01 Dose: 150 mg Levofloxacin/Dextrose (Levaquin 500 Mg Ivpremix(*)) 500 mg in 100 mls @ 100 mls /hr IVPB Q24H [facility] Last Admin: 10/06/18 00:35 Dose: 100 mls/hr Levothyroxine Sodium (Synthroid Tab*) 50 mcg PO QAM@0600 [facility] Last Admin: 10/06/18 05:31 Dose: 50 mcg Metoprolol Succinate (Toprol Xl Tab*) 50 mg PO DAILY [facility] Last Admin: 10/06/18 09:01 Dose: 50 mg Multi-Ingredient Mouthwash/Gargle (Biotene Dry Mouth Oral Rinse(Nf)) 15 ml MT FIVE TIMES DAILY [facility] Multivitamins/Minerals (Theragran/Minerals Tab*) 1 tab PO DAILY [facility] Last Admin: 10/06/18 09:01 Dose: 1 tab Sertraline HCl (Zoloft*) 100 mg PO DAILY [facility] Last Admin: 10/06/18 09:01 Dose: 100 mg Tiotropium Stokes (Spiriva Cap.Inh*) 1 cap INH DAILY [facility] Last Admin: 10/06/18 08:53 Dose: 1 cap Tramadol HCl (Ultram*) 50 mg PO Q6HR PRN PRN Reason: PAIN Verapamil HCl (Calan Tab*) 120 mg PO DAILY [facility] Last Admin: 10/06/18 09:01 Dose: 120 mg Warfarin Sodium (Coumadin Tab(*)) 1.5 mg PO SEE INSTRUCTIONS MOOK; Protocol Warfarin Sodium (Coumadin Tab(*)) 3.5 mg PO SEE INSTRUCTIONS MOOK; Protocol Vital Signs - 8 hr 10/06/18 10/06/18 07:13 08:00 Temperature 97.8 F Pulse Rate 76 Respiratory 20 20 Rate Blood Pressure 144/82 (mmHg) O2 Sat by Pulse 95 Oximetry Oxygen Devices in Use Now: None Appearance: Patient is a 77yo female who appears stated age and is sitting in the bed in [facility]. Eyes: No Scleral Icterus, PERRLA Ears/Nose/Mouth/Throat: NL Teeth, Lips, Gums, Clear Oropharnyx, Mucous Membranes Moist Neck: NL Appearance and Movements; NL JVP, Trachea Midline Respiratory: Symmetrical Chest Expansion and Respiratory Effort, - - Diminished Cardiovascular: NL Sounds; No Murmurs; No JVD, RRR, No Edema Abdominal: NL Sounds; No Tenderness; No Distention, No Hepatosplenomegaly Lymphatic: No Cervical Adenopathy Extremities: No Edema, No Clubbing, Cyanosis Skin: No Nodules or Sclerosis, - - Patchy Rashes with central clearing and satellite lesions under breasts, in groin, and on neck. Neurological: Alert and Oriented x 3, NL Sensation, - - Cogwheeling, Tremor, mask likfe facies, bradykinesia. Result Diagrams: 10/06/18 06:02 10/05/18 16:49 Microbiology and Other Data: Microbiology 10/05/18 17:59 Legionella Urinary Antigen - Final Urine Negative Legionella Antigen Streptococcus pneumoniae Ag Screen - Final Negative S. pneumo Antigen Assess/Plan/Problems-Billing Assessment: Patient is a 77yo female with a PMH for Parkinson's disease, COPD, Afib, here with probable pneumonia, possibly from aspiration and a possible UTI, who is improving slowly on IV antibiotics. - Patient Problems (1) Pneumonia Current Visit: Yes Status: Acute Code(s): J18.9 - PNEUMONIA, UNSPECIFIED ORGANISM SNOMED Code(s): 442255276 Comment: - Infiltrate on CT with SOB - Patient has no leukocytosis, fever, tachycardia, or sepsis - Improving - No oxygen requirement (2) Afib Current Visit: No Status: Acute Code(s): I48.91 - UNSPECIFIED ATRIAL FIBRILLATION SNOMED Code(s): 47298829 Comment: - Rate controlled on Cardizem - Continue Coumadin and monitor INR, slightly subtherapeutic (3) Parkinson disease Current Visit: No Status: Chronic Priority: Medium Code(s): G20 - PARKINSON'S DISEASE SNOMED Code(s): 39368070 Comment: - Signficant disease - Continue Sinemet (4) UTI (urinary tract infection) Current Visit: No Status: Acute Comment: - On levaquin for Pneumonia and UTI - Follow culture (5) COPD (chronic obstructive pulmonary disease) Current Visit: No Status: Chronic Code(s): J44.9 - CHRONIC OBSTRUCTIVE PULMONARY DISEASE, UNSPECIFIED SNOMED Code(s): 76789437 Comment: - No exacerbation, continue home Spiriva and PRN Nebs (6) Dementia Current Visit: No Status: Chronic Priority: Medium Code(s): F03.90 - UNSPECIFIED DEMENTIA WITHOUT BEHAVIORAL DISTURBANCE SNOMED Code(s): 84523006 Comment: - Likely related to Parkinson's disease - Continue Sinemet at current dose. (7) History of hypertension Current Visit: No Status: Chronic Priority: Medium Code(s): Z86.79 - PERSONAL HISTORY OF OTHER DISEASES OF THE CIRCULATORY SYSTEM SNOMED Code(s): 103826040 Comment: - Continue metoprolol, verapmil - Normotensive (8) Hypothyroid Current Visit: No Status: Chronic Code(s): E03.9 - HYPOTHYROIDISM, UNSPECIFIED SNOMED Code(s): 63308058 Comment: - TSH in in the appropriate range- continue current dose of levothyroxine. (9) Tachy-kaleb syndrome Current Visit: No Status: Chronic Priority: Medium Code(s): I49.5 - SICK SINUS SYNDROME SNOMED Code(s): 15440906 Comment: - Pacemaker present. (10) DNR (do not resuscitate) Current Visit: No Status: Acute (11) DVT prophylaxis Current Visit: No Status: Acute Code(s): FET8045 - SNOMED Code(s): 903671524 Comment: - Coumadin Status and Disposition: Inpatient for treatment of Pneumonia and UTI.
[2018-10-06] MEDS ORDERED: Warfarin TAB(*) 1 MG PO SCH (18:00)
[2018-10-06] MEDS ORDERED: Warfarin TAB(*) 3 MG PO SCH (18:00)
[2018-10-06] MEDS ORDERED: Warfarin TAB(*) 2.5 MG PO SCH (18:00)
[2018-10-06] MEDS: Docusate CAP* 100 MG PO SCH (20:57)
[2018-10-07] MEDS: Levofloxacin 500 MG IVPREMIX(* 500 MG/100 ML BAG IVPB SCH (00:01)
[2018-10-07] MEDS: traMADol TAB* 50 MG PO PRN (04:33)
[2018-10-07] MEDS: Levothyroxine TAB* 50 MCG TAB PO SCH (05:15)
[2018-10-07] MEDS: CMCS - Oral Rinse (Biotene)(NF) 237 ML or 473 ML ORAL RINSE BTL MT SCH ×5 (05:15→21:27)
[2018-10-07 06:51] LABS: ABS Basophils 0.1 10^3/ul (0-0.2); ABS Eosinophils 0.1 10^3/ul (0-0.6); ABS Lymphocytes 1.2 10^3/ul (1.0-4.8); ABS Monocytes 0.6 10^3/ul (0-0.8); ABS Neutrophils 5.4 10^3/ul (1.5-7.7); ABS Nucleated RBC 0 10^3/ul; Eosinophil % 1.3 %; Hematocrit 38 % (35-47); Hemoglobin 12.1 g/dl (12.0-16.0); Lymphocyte % 15.9 %; Mean Corpuscular HGB Conc 32 g/dl (31-36); Mean Corpuscular Hemoglobin 25 pg (27-31); Mean Corpuscular Volume 76 fL (80-97); Mean Platelet Volume 8.6 fL (7.4-10.4); Nucleated Red Blood Cells % 0.1; Platelet Count 183 10^3/ul (150-450); Red Blood Count 4.94 10^6/ul (4.00-5.40); Red Cell Distribution Width 18 % (10.5-15); White Blood Count 7.3 10^3/ul (3.5-10.8)
[2018-10-07 07:03] LABS: INR 2.26 (0.77-1.02)
[2018-10-07 07:07] LABS: BUN/Creatinine Ratio 16.3 (8-20); Calcium 9.6 mg/dL (8.6-10.3); EGFR African American 84.4 (>60); EGFR Non-African American 69.7 (>60); Magnesium 1.8 mg/dL (1.9-2.7); Potassium 3.8 mmol/L (3.5-5.0)
[2018-10-07] MEDS ORDERED: Magnesium Sulfate 2 GM IV* 2 GM/50 ML BAG IVPB ONE (07:25)
[2018-10-07] MEDS: Metoprolol Succinate XL TAB* 50 MG PO SCH (09:18)
[2018-10-07] MEDS: Carbidopa/Levodop 25/100 MG TAB(*) PO SCH ×4 (09:18→21:27)
[2018-10-07] MEDS: Verapamil TAB* 120 MG PO SCH (09:18)
[2018-10-07] MEDS: Sertraline* 100 MG TAB PO SCH (09:18)
[2018-10-07] MEDS: Clotrimazole 1% CREAM* 45 GM TOPICAL SCH (09:19)
[2018-10-07] MEDS: Tiotropium CAP.INH* CAP.INH/18 MCG (USE ORDER SET !) INH SCH (09:19)
[2018-10-07] MEDS: Multivitamins/Minerals TAB PO SCH (09:19)
--- NOTE | 2018-10-07 11:29 | ECHO ---
Patient: JAD PINEDA [facility] Rec#: [id number] : 1940 Date: 10/07/2018 Age: 77y Height: 165.1 cm / 65.0 in Weight: 75.3 kg / 166.0 lbs Sex: F BSA: 1.83 Room#: [facility] Admit Date#: 10/05/2018 Type: Inpatient Referring: Ke Locke Reading: Oren Lopez MD [employer] Tutor: Ella Martines RN RDCS CC: Madi Quiroga MD Transthoracic Echocardiogram Indication: Shortness of breath BP: 145/94 HR: 92 Rhythm: A-Fib Findings History: A. fib, pacemaker, HTN, DM, thyroid disease, COPD, LEILANI, Parkinson's disease, dementia Technical Comments: The study quality is fair. The study is technically limited due to the patient's history of COPD. Left Ventricle: The left ventricular chamber size is normal. Mild to moderate concentric left ventricular hypertrophy is observed. There is global hypokinesis of the left ventricle with minor regional variation. There is severely decreased left ventricular systolic function. The estimated ejection fraction is 25-30%. There is abnormal ventricular septal wall motion consistent with right ventricular pacemaker. Abnormal left ventricular diastolic filling is observed, consistent with impaired relaxation. Left Atrium: The left atrium is moderate to severely dilated. Right Ventricle: The right ventricular chamber size and systolic function are within normal limits. The right ventricle wall thickness is mildly increased. A pacemaker wire is visualized in the right ventricle. Right Atrium: The right atrium is moderate to severely dilated. A pacemaker wire is visualized in the right atrium. Aortic Valve: The aortic valve is trileaflet. The aortic valve leaflets are moderately thickened. There is no evidence of aortic regurgitation. There is mild aortic stenosis. The mean gradient of the aortic valve is 6 mmHg. The peak instantaneous gradient of the aortic valve is 11 mmHg. The aortic valve area, by peak velocities, is calculated at 1.7 cm2. The aortic valve area, by VTI's, is calculated at 1.7 cm2. Mitral Valve: There is mitral annular calcification. The mitral valve leaflets are mildly thickened. There is mild mitral regurgitation. There is no evidence of mitral stenosis. Tricuspid Valve: The tricuspid valve leaflets are normal. There is trace to mild tricuspid regurgitation. There is evidence of borderline pulmonary hypertension. There is no tricuspid stenosis. Pulmonic Valve: The pulmonic valve appears normal. There is trace to mild pulmonic regurgitation. There is no pulmonic stenosis. Pericardium: There is no significant pericardial effusion. A pericardial fat pad is visualized. Aorta: There is no dilatation of the ascending aorta. The aortic arch is not well visualized. There is no dilation of the aortic root. Pulmonary Artery: The main pulmonary artery appears normal. Venous: The inferior vena cava is dilated. There is a greater than 50% respiratory change in the inferior vena cava dimension. Conclusions Mild to moderate concentric left ventricular hypertrophy is observed. There is global hypokinesis of the left ventricle with minor regional variation. The estimated ejection fraction is 25-30%. There is abnormal ventricular septal wall motion consistent with right ventricular pacemaker. Abnormal left ventricular diastolic filling is observed, consistent with impaired relaxation. The right ventricular chamber size and systolic function are within normal limits. A pacemaker wire is visualized in the right ventricle. The aortic valve leaflets are moderately thickened. There is mild aortic stenosis. The mean gradient of the aortic valve is 6 mmHg. There is no evidence of aortic regurgitation. There is mild mitral regurgitation. There is trace to mild tricuspid regurgitation. There is evidence of borderline pulmonary hypertension. There is no significant pericardial effusion. Compared to study of 12/02/15, the LV function is much lower. Previous LV function was 55-60%. Valve structures are the same Measurements Name Value Normal Range RVIDd (AP) 2D 2.6 cm (0.9 - 2.6) RVDdMajor (2D) 2.9 cm (2.2 - 4.4) RVAW (2D) 0.6 cm (0.2 - 0.5) RAd ISD 4CH 6.6 cm (3.4 - 4.9) RA (A4C)W 4.6 cm (2.9 - 4.6) IVSd (2D) 1.3 cm (0.6 - 1) LVPWd (2D) 1.3 cm (0.6 - 1) LVIDd (2D) 5 cm (3.6 - 5.4) LVIDs (2D) 4.4 cm - LV FS (2D) 12 % (25 - 45) Aortic Annulus 2 cm (1.4 - 2.6) Ao root diameter (2D) 3.1 cm (2.1 - 3.5) Ascending Ao 3.2 cm (2.1 - 3.4) LA dimension (AP) 2D 4 cm (2.3 - 3.8) LAd ISD 4CH 6.3 cm (2.9 - 5.3) LA ISD 4CH W 5.3 cm (2.5 - 4.5) Name Value Normal Range LA ESV SP 4CH (A/L) 140 ml - LA ESV SP 2CH (A/L) 89 ml - LA ESV BP (A/L) 115 ml - LA ESV BP (A/L) index 62.8 ml/m2 - LA ESV SP 4CH (MOD) 129 ml - LA ESV SP 2CH (MOD) 86 ml - Name Value Normal Range MV E-wave Vmax 1.1 m/sec - MV deceleration time 150 msec - LV septal e' Vmax 0.07 m/sec - LV lateral e' Vmax 0.08 m/sec - LV E:e' septal ratio 15.7 ratio - LV E:e' lateral ratio 13.8 ratio - Name Value Normal Range AV Vmax 1.7 m/sec - AV VTI 28.2 cm - AV peak gradient 11 mmHg - AV mean gradient 6 mmHg - LVOT diameter 2 cm - LVOT Vmax 0.93 m/sec - LVOT VTI 15.3 cm - LVOT peak gradient 4 mmHg - LVOT mean gradient 2 mmHg - DOI (VTI) 0.54 ratio - DOI (Vmax) 0.55 ratio - MIRELLA (continuity Vmax) 1.7 cm2 - MIRELLA (continuity VTI) 1.7 cm2 - Name Value Normal Range TR Vmax 2.6 m/sec - TR peak gradient 27 mmHg - RAP 8 mmHg - RVSP 35 mmHg - IVC diameter 2.8 cm - Name Value Normal Range PV Vmax 0.82 m/sec -
--- NOTE | 2018-10-07 14:20 | PN ---
Subjective Date of Service: 10/07/18 Interval History: Patient is feeling better today but is still feeling very tired. Patient denies CP and states her SOB is getting better. Patient denies F/C, N/V, abdominal pain , diarrhea, dysuria, pain. Patient was unable to stand yesterday with PT. Patient does not walk long distances at home due to knee arthritis per the son and is mainly chair bound. Family History: Unchanged from Admission Social History: Unchanged from Admission Past Medical History: Unchanged from Admission Objective Active Medications: Albuterol/Ipratropium (Duoneb (Albuterol 2.5 Mg/Ipratropium 0.5 Mg)) 1 neb INH Q6H PRN PRN Reason: SOB/WHEEZING Carbidopa/Levodopa (Sinemet 25/100 Tab(*)) 1 tab PO QID [facility] Last Admin: 10/07/18 13:19 Dose: 1 tab Clotrimazole (Clotrimazole 1%*) 1 applic TOPICAL DAILY [facility] Last Admin: 10/07/18 09:19 Dose: 1 applic Docusate Sodium (Colace Cap*) 100 mg PO BEDTIME [facility] Last Admin: 10/06/18 20:57 Dose: 100 mg Levofloxacin/Dextrose (Levaquin 500 Mg Ivpremix(*)) 500 mg in 100 mls @ 100 mls /hr IVPB Q24H [facility] Last Admin: 10/07/18 00:01 Dose: 100 mls/hr Levothyroxine Sodium (Synthroid Tab*) 50 mcg PO QAM@0600 [facility] Last Admin: 10/07/18 05:15 Dose: 50 mcg Metoprolol Succinate (Toprol Xl Tab*) 50 mg PO DAILY [facility] Last Admin: 10/07/18 09:18 Dose: 50 mg Multi-Ingredient Mouthwash/Gargle (Biotene Dry Mouth Oral Rinse(Nf)) 15 ml MT FIVE TIMES DAILY [facility] Last Admin: 10/07/18 13:19 Dose: 15 ml Multivitamins/Minerals (Theragran/Minerals Tab*) 1 tab PO DAILY [facility] Last Admin: 10/07/18 09:19 Dose: 1 tab Sertraline HCl (Zoloft*) 100 mg PO DAILY [facility] Last Admin: 10/07/18 09:18 Dose: 100 mg Tiotropium [place] (Spiriva Cap.Inh*) 1 cap INH DAILY [facility] Last Admin: 02/11/19 09:19 Dose: 1 cap Tramadol HCl (Ultram*) 50 mg PO Q6HR PRN PRN Reason: PAIN Last Admin: 10/07/18 04:33 Dose: 50 mg Verapamil HCl (Calan Tab*) 120 mg PO DAILY [facility] Last Admin: 10/07/18 09:18 Dose: 120 mg Warfarin Sodium (Coumadin Tab(*)) 1.5 mg PO MoTuWeThFrSa@1700 [facility]; Protocol Warfarin Sodium (Coumadin Tab(*)) 2.5 mg PO GUZMÁN@1700 [facility]; Protocol Last Admin: 10/06/18 19:07 Dose: 2.5 mg Warfarin Sodium (Coumadin Tab(*)) 1 mg PO Guzmán@1700 [facility] Last Admin: 10/06/18 19:07 Dose: 1 mg Vital Signs - 8 hr 10/07/18 10/07/18 10/07/18 07:15 07:45 08:00 Temperature 97.9 F Pulse Rate 91 Respiratory 16 16 16 Rate Blood Pressure 154/68 (mmHg) O2 Sat by Pulse 93 Oximetry 10/07/18 12:24 Temperature 98.1 F Pulse Rate 61 Respiratory 14 Rate Blood Pressure 136/61 (mmHg) O2 Sat by Pulse 96 Oximetry Oxygen Devices in Use Now: None Appearance: Patient is a 77yo female who appears stated age and is sitting in the bed in [facility]. Eyes: No Scleral Icterus, PERRLA Ears/Nose/Mouth/Throat: NL Teeth, Lips, Gums, Clear Oropharnyx, Mucous Membranes Moist Neck: NL Appearance and Movements; NL JVP, Trachea Midline Respiratory: Symmetrical Chest Expansion and Respiratory Effort, Clear to Auscultation Cardiovascular: NL Sounds; No Murmurs; No JVD, No Edema, - Abdominal: NL Sounds; No Tenderness; No Distention, No Hepatosplenomegaly Lymphatic: No Cervical Adenopathy Extremities: No Edema, No Clubbing, Cyanosis Skin: No Nodules or Sclerosis, - - Stable rash under breasts and in groin. Neurological: - - Parkinsonian features. Result Diagrams: 10/07/18 06:42 10/07/18 06:42 Microbiology and Other Data: Microbiology 10/05/18 17:59 Legionella Urinary Antigen - Final Urine Negative Legionella Antigen Streptococcus pneumoniae Ag Screen - Final Negative S. pneumo Antigen Assess/Plan/Problems-Billing Assessment: Patient is a 77yo female with a PMH for Parkinson's disease, COPD, Afib, here with probable pneumonia, possibly from aspiration and a possible UTI, who is improving slowly on IV antibiotics. Patient was found to have a low EF on echo and is pending cardiology consult. - Patient Problems (1) Pneumonia Current Visit: Yes Status: Acute Code(s): J18.9 - PNEUMONIA, UNSPECIFIED ORGANISM SNOMED Code(s): 694359850 Comment: - Infiltrate on CT with SOB - Patient has no leukocytosis, fever, tachycardia, or sepsis - Improving - No oxygen requirement (2) Heart failure with reduced ejection fraction Current Visit: Yes Status: Acute Code(s): I50.20 - UNSPECIFIED SYSTOLIC ( CONGESTIVE) HEART FAILURE SNOMED Code(s): 415524524 Comment: - Echo performed showed current EF 25-30%. No signs of fluid overload. - Pending Cardiology consultation for recommendations, will need to be started on ARB and Spironolactone while maintaining Rate Control - Possibly tachycardia/pacemaker associated - Troponins negative at admission - No Chest Pain - No indication for diuresis at this time. (3) Afib Current Visit: No Status: Acute Code(s): I48.91 - UNSPECIFIED ATRIAL FIBRILLATION SNOMED Code(s): 09275156 Comment: - Rate controlled on Cardizem - Continue Coumadin and monitor INR, slightly subtherapeutic - Patient had recent Pacemaker interrogation without issues per son (4) Parkinson disease Current Visit: No Status: Chronic Priority: Medium Code(s): G20 - PARKINSON'S DISEASE SNOMED Code(s): 21330186 Comment: - Signficant disease - Continue Sinemet (5) UTI (urinary tract infection) Current Visit: No Status: Acute Comment: - On levaquin for Pneumonia and UTI - Follow culture (6) COPD (chronic obstructive pulmonary disease) Current Visit: No Status: Chronic Code(s): J44.9 - CHRONIC OBSTRUCTIVE PULMONARY DISEASE, UNSPECIFIED SNOMED Code(s): 75357469 Comment: - No exacerbation, continue home Spiriva and PRN Nebs (7) Dementia Current Visit: No Status: Chronic Priority: Medium Code(s): F03.90 - UNSPECIFIED DEMENTIA WITHOUT BEHAVIORAL DISTURBANCE SNOMED Code(s): 12268931 Comment: - Likely related to Parkinson's disease - Continue Sinemet at current dose. (8) History of hypertension Current Visit: No Status: Chronic Priority: Medium Code(s): Z86.79 - PERSONAL HISTORY OF OTHER DISEASES OF THE CIRCULATORY SYSTEM SNOMED Code(s): 958746022 Comment: - Continue metoprolol, verapmil - Normotensive (9) Hypothyroid Current Visit: No Status: Chronic Code(s): E03.9 - HYPOTHYROIDISM, UNSPECIFIED SNOMED Code(s): 73184542 Comment: - TSH in in the appropriate range- continue current dose of levothyroxine. 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 (11) DNR (do not resuscitate) Current Visit: No Status: Acute (12) DVT prophylaxis Current Visit: No Status: Acute Code(s): GVS7701 - SNOMED Code(s): 444092571 Comment: - Coumadin Status and Disposition: Inpatient for treatment of Pneumonia and UTI and new diagnosis of HFrEF.
[2018-10-07 15:34] LABS: HDL Cholesterol 43.4 mg/dL
[2018-10-07] MEDS: Warfarin TAB(*) 1 MG PO SCH (16:53)
--- NOTE | 2018-10-07 20:16 | CONS ---
CC: Dr. Madi Quiroga; Dr. Jerry Mccann * CARDIOLOGY CONSULTATION: DATE OF CONSULT: 10/07/18 INDICATION FOR CONSULT: Pacemaker cardiomyopathy. HISTORY OF PRESENT ILLNESS: The patient is a 77-year-old female with a history of COPD, chronic atrial fibrillation, tachybrady syndrome, pacemaker, who was admitted to the hospital with shortness of breath and poor appetite. She was found to have right middle lobe pneumonia and she was started on antibiotics. The patient had an echocardiogram today, which showed severely reduced LV systolic function. Ejection fraction of 25% to 30%. She did have septal asynchrony secondary to her right ventricular pacemaker. She underwent an echocardiogram in 2016, her ejection fraction has fallen from 50% to 25%. In speaking with the patient, she denies any angina. She denies any palpitations, she denies any lightheadedness, dizziness, or syncope. Again, she has been having shortness of breath, which is most likely attributed to her pneumonia. PAST MEDICAL HISTORY: Significant for COPD, Parkinson's disease, hypothyroidism , gastroesophageal reflux disease, diet-controlled diabetes. PAST SURGICAL HISTORY: Cervical fusion in her neck, lumbar laminectomy, bilateral hip replacements. OUTPATIENT MEDICATIONS: 1. Multivitamins a day. 2. Fluconazole 150 mg a day. 3. Coumadin as directed. 4. Carbidopa/levodopa 25/100 mg 4 times a day. 5. Tramadol 50 mg q.6 hours as needed. 6. Zoloft 100 mg a day. 7. Metoprolol succinate 50 mg daily. 8. Colace 50 mg at bedtime. 9. Verapamil 120 mg a day. ALLERGIES: To GABAPENTIN, PENICILLIN, AZITHROMYCIN. FAMILY HISTORY: Father of liver cancer and mother of congestive heart failure. SOCIAL HISTORY: She [place] a [place] She is . She is a previous smoker. She denies any alcohol use. Her healthcare proxy is her son, Olivier. REVIEW OF SYSTEMS: Fevers and chills. Negative for changes in the bowel or bladder habits. Positive anorexia. PHYSICAL EXAM: Height is 5 feet 5 inches, weight is 166 pounds, blood pressure of 136/61, heart rate is 61, respiratory rate is 14, temperature 98.1. Sclerae anicteric. Oropharynx is pink without erythema. Carotids are 2+ without bruits. JVD is normal. Thyroid is normal. Cardiac Exam: S1, S2, irregular. No murmurs, rubs, or gallops. Lungs are clear to auscultation. There is no dullness to percussion. Abdomen is soft, nontender, nondistended with normoactive bowel sounds. Extremities show no edema. She has 2+ pulses throughout. The patient is awake. She has mild dementia and is unaware of her surroundings. DIAGNOSTIC STUDIES/LAB DATA: CBC within normal limits. Chemistry is within normal limits. BUN and creatinine are normal. Troponins are negative x4. Total cholesterol 181, LDL cholesterol 122. EKG shows atrial fibrillation with a left bundle branch block. IMPRESSION AND PLAN: This is a 77-year-old female with a history of chronic atrial fibrillation, history of a pacemaker, who is admitted to the hospital with presumed pneumonia. While in the hospital, she was complaining of shortness of breath and she got an echocardiogram. Echocardiogram shows significant reduction in left ventricular function compared to 2016. The patient of does not have any evidence of congestive heart failure. She denies any anginal-type symptoms. For now my recommendation is to just continue with maximum medical therapy. She is on beta-constance and calcium-channel constance. The patient would benefit from an HARPER inhibitor. I do not think Lasix is necessary in this patient. I think it is reasonable to consider adding spironolactone. The patient will follow up as an outpatient with Dr. Mccann. [id number]/[facility] #: [id number] [facility] CENTERDilan
[2018-10-07] MEDS: Docusate CAP* 100 MG PO SCH (21:27)
[2018-10-08] MEDS: Levofloxacin 500 MG IVPREMIX(* 500 MG/100 ML BAG IVPB SCH (00:31)
[2018-10-08] MEDS: Levothyroxine TAB* 50 MCG TAB PO SCH (05:35)
[2018-10-08] MEDS: CMCS - Oral Rinse (Biotene)(NF) 237 ML or 473 ML ORAL RINSE BTL MT SCH ×6 (05:35→21:32)
[2018-10-08 07:10] LABS: ABS Basophils 0 10^3/ul (0-0.2); ABS Eosinophils 0.1 10^3/ul (0-0.6); ABS Lymphocytes 1.4 10^3/ul (1.0-4.8); ABS Monocytes 0.6 10^3/ul (0-0.8); ABS Neutrophils 5.5 10^3/ul (1.5-7.7); ABS Nucleated RBC 0 10^3/ul; Eosinophil % 1.2 %; Hematocrit 38 % (35-47); Hemoglobin 12.1 g/dl (12.0-16.0); Mean Corpuscular HGB Conc 32 g/dl (31-36); Mean Corpuscular Hemoglobin 24 pg (27-31); Mean Corpuscular Volume 76 fL (80-97); Mean Platelet Volume 9.3 fL (7.4-10.4); Nucleated Red Blood Cells % 0.1; Platelet Count 196 10^3/ul (150-450); Red Blood Count 4.98 10^6/ul (4.00-5.40); Red Cell Distribution Width 17 % (10.5-15); White Blood Count 7.6 10^3/ul (3.5-10.8)
[2018-10-08 07:17] LABS: BUN/Creatinine Ratio 13.8 (8-20); Calcium 9.6 mg/dL (8.6-10.3); EGFR African American 84.2 (>60); EGFR Non-African American 69.6 (>60); Potassium 3.5 mmol/L (3.5-5.0)
[2018-10-08] MEDS: Tiotropium CAP.INH* CAP.INH/18 MCG (USE ORDER SET !) INH SCH (07:56)
[2018-10-08] MEDS ORDERED: Potassium Chlor TAB* 20 MEQ TAB.ER PO ONE ×2 (08:53→16:00)
[2018-10-08] MEDS: Multivitamins/Minerals TAB PO SCH (09:28)
[2018-10-08] MEDS: Metoprolol Succinate XL TAB* 50 MG PO SCH (09:28)
[2018-10-08] MEDS: Carbidopa/Levodop 25/100 MG TAB(*) PO SCH ×4 (09:28→21:25)
[2018-10-08] MEDS: traMADol TAB* 50 MG PO PRN (09:29)
[2018-10-08] MEDS: Clotrimazole 1% CREAM* 45 GM TOPICAL SCH (09:29)
[2018-10-08] MEDS: Sertraline* 100 MG TAB PO SCH (09:29)
[2018-10-08] MEDS: Verapamil TAB* 120 MG PO SCH (09:33)
--- NOTE | 2018-10-08 15:32 | PN ---
Subjective Date of Service: 10/08/18 Interval History: Resting in bed on assessment. Reports she feels improved today, but continues to feel tired. Continues to have some sob, but reports it is improving. Denies chest pain, palpitations, nausea, vomiting, diarrhea, urinary symptoms, fever/chills. Patient did not stand with PT yesterday due to safety concerns as there was only one PT and patient was having difficultly initiating movement. Today patient refused PT Family History: Unchanged from Admission Social History: Unchanged from Admission Past Medical History: Unchanged from Admission Objective Active Medications: Albuterol/Ipratropium (Duoneb (Albuterol 2.5 Mg/Ipratropium 0.5 Mg)) 1 neb INH Q6H PRN PRN Reason: SOB/WHEEZING Carbidopa/Levodopa (Sinemet 25/100 Tab(*)) 1 tab PO QID [facility] Last Admin: 10/08/18 14:02 Dose: 1 tab Clotrimazole (Clotrimazole 1%*) 1 applic TOPICAL DAILY [facility] Last Admin: 10/08/18 09:29 Dose: 1 applic Docusate Sodium (Colace Cap*) 100 mg PO BEDTIME [facility] Last Admin: 10/07/18 21:27 Dose: 100 mg Levothyroxine Sodium (Synthroid Tab*) 50 mcg PO QAM@0600 [facility] Last Admin: 10/08/18 05:35 Dose: 50 mcg Metoprolol Succinate (Toprol Xl Tab*) 50 mg PO DAILY [facility] Last Admin: 10/08/18 09:28 Dose: 50 mg Multi-Ingredient Mouthwash/Gargle (Biotene Dry Mouth Oral Rinse(Nf)) 15 ml MT FIVE TIMES DAILY [facility] Last Admin: 10/08/18 14:02 Dose: 15 ml Multivitamins/Minerals (Theragran/Minerals Tab*) 1 tab PO DAILY [facility] Last Admin: 10/08/18 09:28 Dose: 1 tab Sertraline HCl (Zoloft*) 100 mg PO DAILY [facility] Last Admin: 10/08/18 09:29 Dose: 100 mg Tiotropium [place] (Spiriva Cap.Inh*) 1 cap INH DAILY [facility] Last Admin: 10/08/18 07:56 Dose: 1 cap Tramadol HCl (Ultram*) 50 mg PO Q6HR PRN PRN Reason: PAIN Last Admin: 10/08/18 09:29 Dose: 50 mg Verapamil HCl (Calan Tab*) 120 mg PO DAILY [facility] Last Admin: 10/08/18 09:33 Dose: 120 mg Warfarin Sodium (Coumadin Tab(*)) 1.5 mg PO MoTuWeThFrSa@1700 [facility]; Protocol Last Admin: 10/07/18 16:53 Dose: 1.5 mg Warfarin Sodium (Coumadin Tab(*)) 2.5 mg PO GUZMÁN@1700 [facility]; Protocol Last Admin: 10/06/18 19:07 Dose: 2.5 mg Warfarin Sodium (Coumadin Tab(*)) 1 mg PO Guzmán@1700 [facility] Last Admin: 10/06/18 19:07 Dose: 1 mg Vital Signs - 8 hr 10/08/18 10/08/18 10/08/18 08:00 08:07 09:29 Temperature 98.3 F Pulse Rate 93 104 Respiratory 20 20 16 Rate Blood Pressure 133/96 (mmHg) O2 Sat by Pulse 93 92 Oximetry 10/08/18 10/08/18 10/08/18 11:04 11:15 11:35 Temperature 98.3 F Pulse Rate 24 98 Respiratory 18 16 Rate Blood Pressure 115/64 (mmHg) O2 Sat by Pulse 95 Oximetry Oxygen Devices in Use Now: None Appearance: Comfortable, NAD Eyes: No Scleral Icterus Ears/Nose/Mouth/Throat: Clear Oropharnyx, Mucous Membranes Moist Neck: NL Appearance and Movements; NL JVP Respiratory: Symmetrical Chest Expansion and Respiratory Effort, Clear to Auscultation Cardiovascular: NL Sounds; No Murmurs; No JVD, RRR, No Edema Abdominal: NL Sounds; No Tenderness; No Distention Extremities: No Clubbing, Cyanosis Skin: No Rash or Ulcers Neurological: - - Parkinsons. Alert and oriented x2. Strength equal. Able to follow commands Nutrition: Taking PO's Result Diagrams: 10/08/18 06:17 10/08/18 06:17 Additional Lab and Data: Laboratory Results - last 24 hr 10/07/18 10/07/18 10/08/18 06:42 06:42 06:17 WBC 7.6 RBC 4.98 Hgb 12.1 Hct 38 MCV 76 L MCH 24 L MCHC 32 RDW 17 H Plt Count 196 MPV 9.3 Neut % (Auto) 72.7 Lymph % (Auto) 18.0 Forrest % (Auto) 7.5 Eos % (Auto) 1.2 Baso % (Auto) 0.6 Absolute Neuts (auto) 5.5 Absolute Lymphs (auto) 1.4 Absolute Monos (auto) 0.6 Absolute Eos (auto) 0.1 Absolute Basos (auto) 0 Absolute Nucleated RBC 0 Nucleated RBC % 0.1 Sodium Potassium Chloride Carbon Dioxide Anion Gap BUN Creatinine Est GFR ( Amer) Est GFR (Non-Af Amer) BUN/Creatinine Ratio Glucose Hemoglobin A1c 6.1 H Calcium Magnesium Troponin I 0.00 Triglycerides 80 Cholesterol 181 LDL Cholesterol 122 HDL Cholesterol 43.4 10/08/18 06:17 WBC RBC Hgb Hct MCV MCH MCHC RDW Plt Count MPV Neut % (Auto) Lymph % (Auto) Forrest % (Auto) Eos % (Auto) Baso % (Auto) Absolute Neuts (auto) Absolute Lymphs (auto) Absolute Monos (auto) Absolute Eos (auto) Absolute Basos (auto) Absolute Nucleated RBC Nucleated RBC % Sodium 142 Potassium 3.5 Chloride 106 Carbon Dioxide 26 Anion Gap 10 BUN 11 Creatinine 0.80 Est GFR ( Amer) 84.2 Est GFR (Non-Af Amer) 69.6 BUN/Creatinine Ratio 13.8 Glucose 109 H Hemoglobin A1c Calcium 9.6 Magnesium 2.0 Troponin I Triglycerides Cholesterol LDL Cholesterol HDL Cholesterol Microbiology and Other Data: Microbiology 10/05/18 17:59 Urine Urine Culture - Final Enterococcus Faecalis 10/05/18 23:37 Blood Venous Aerobic Blood Culture - Preliminary No Growth Day 2 10/05/18 23:37 Blood Venous Anaerobic Blood Culture - Preliminary No Growth Day 2 10/05/18 23:22 Blood Venous Aerobic Blood Culture - Preliminary No Growth Day 2 10/05/18 23:22 Blood Venous Anaerobic Blood Culture - Preliminary No Growth Day 2 Assess/Plan/Problems-Billing Assessment: Patient is a 77yo female with a PMH for Parkinson's disease, COPD, Afib, here with probable pneumonia, possibly from aspiration and a possible UTI, who is improving slowly on IV antibiotics. Patient was found to have a low EF on echo and cardiology consulted. - Patient Problems (1) Pneumonia Comment: - Infiltrate on CT with SOB - Patient has no leukocytosis, fever, tachycardia, or sepsis - Improving - No oxygen requirement - Patient on Levaquin, but givne urine cultures changed to Linezolid which will cover both pneumonia and UTI (2) UTI (urinary tract infection) Comment: - Culture revealed enterococcus faecalis, which is not suspectable to Levaquin. Therefore, Levaquin stopped and Linezolid started. (3) Heart failure with reduced ejection fraction Comment: - Echo performed showed current EF 25-30%. No signs of fluid overload. - Cardiology consulted and we appreciate their recommendations: Cont max medical therapy with BB and CCB, patient would benefit from HARPER, lasix not necessary, consider Spironolocatone, patient should follow up with Dr Mccann as outpatient. - Troponins negative at admission - No Chest Pain - No indication for diuresis at this time. - Lisinopril added to start tomorrow at 2.5 mg daily (4) Afib Comment: - Rate controlled on Cardizem - Continue Coumadin and monitor INR, therapeutic, continue to monitor - Patient had recent Pacemaker interrogation without issues per son (5) Parkinsonism Comment: - Cont Sinemet - Cont physical therapy - Would very much benefit from Acute/Subacute rehab (6) COPD (chronic obstructive pulmonary disease) Current Visit: No Status: Chronic Code(s): J44.9 - CHRONIC OBSTRUCTIVE PULMONARY DISEASE, UNSPECIFIED SNOMED Code(s): 68067789 Comment: - No exacerbation, continue home Spiriva and PRN Nebs (7) Dementia Current Visit: No Status: Chronic Priority: Medium Code(s): F03.90 - UNSPECIFIED DEMENTIA WITHOUT BEHAVIORAL DISTURBANCE SNOMED Code(s): 26093674 Comment: - Likely related to Parkinson's disease - Continue Sinemet at current dose. (8) History of hypertension Current Visit: No Status: Chronic Priority: Medium Code(s): Z86.79 - PERSONAL HISTORY OF OTHER DISEASES OF THE CIRCULATORY SYSTEM SNOMED Code(s): 229019664 Comment: - Continue metoprolol, verapmil - Normotensive - Adding Lisinopril due to HFrEF, therefore, monitor for hypotension (9) Hypothyroid Comment: - TSH in in the appropriate range- continue current dose of levothyroxine. 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 - Afib on monitor with occasional pacer spikes (11) DVT prophylaxis Comment: - Coumadin (12) DNR (do not resuscitate) Status and Disposition: Inpatient for treatment of Pneumonia and UTI and new diagnosis of HFrEF. Attending: Gonzalez Layne
[2018-10-08] MEDS: Warfarin TAB(*) 1 MG PO SCH (18:27)
[2018-10-08] MEDS: Docusate CAP* 100 MG PO SCH ×2 (21:25→21:31)
[2018-10-09] MEDS: CMCS - Oral Rinse (Biotene)(NF) 237 ML or 473 ML ORAL RINSE BTL MT SCH ×5 (05:14→20:37)
[2018-10-09] MEDS: Levothyroxine TAB* 50 MCG TAB PO SCH (05:14)
[2018-10-09 07:56] LABS: BUN/Creatinine Ratio 21.7 (8-20); Calcium 9.5 mg/dL (8.6-10.3); EGFR African American 80.7 (>60); EGFR Non-African American 66.7 (>60); Magnesium 1.9 mg/dL (1.9-2.7); Potassium 4.1 mmol/L (3.5-5.0)
[2018-10-09] MEDS: Tiotropium CAP.INH* CAP.INH/18 MCG (USE ORDER SET !) INH SCH (08:18)
[2018-10-09] MEDS: Lisinopril TAB* 5 MG PO SCH (08:53)
[2018-10-09] MEDS: Metoprolol Succinate XL TAB* 50 MG PO SCH (08:53)
[2018-10-09] MEDS: Multivitamins/Minerals TAB PO SCH (08:54)
[2018-10-09] MEDS: Verapamil TAB* 120 MG PO SCH (08:56)
[2018-10-09] MEDS: Sertraline* 100 MG TAB PO SCH (08:56)
[2018-10-09] MEDS: Carbidopa/Levodop 25/100 MG TAB(*) PO SCH ×4 (08:56→20:36)
[2018-10-09] MEDS: Clotrimazole 1% CREAM* 45 GM TOPICAL SCH (08:58)
--- NOTE | 2018-10-09 16:57 | PN ---
Subjective Date of Service: 10/09/18 Interval History: Per nurse, patient walked to the bathroom with walker, gait belt, and assist. Patient resting in bed on assessment. Denies pain, shortness of breath, nausea, vomiting, diarrhea. Family History: Unchanged from Admission Social History: Unchanged from Admission Past Medical History: Unchanged from Admission Objective Active Medications: Albuterol/Ipratropium (Duoneb (Albuterol 2.5 Mg/Ipratropium 0.5 Mg)) 1 neb INH Q6H PRN PRN Reason: SOB/WHEEZING Carbidopa/Levodopa (Sinemet 25/100 Tab(*)) 1 tab PO QID [facility] Last Admin: 10/09/18 13:35 Dose: 1 tab Clotrimazole (Clotrimazole 1%*) 1 applic TOPICAL DAILY [facility] Last Admin: 10/09/18 08:58 Dose: 1 applic Docusate Sodium (Colace Cap*) 100 mg PO BEDTIME [facility] Last Admin: 10/08/18 21:31 Dose: Not Given Levofloxacin/Dextrose (Levaquin 500 Mg Ivpremix(*)) 500 mg in 100 mls @ 100 mls /hr IVPB Q24H [facility] Levothyroxine Sodium (Synthroid Tab*) 50 mcg PO QAM@0600 [facility] Last Admin: 10/09/18 05:14 Dose: 50 mcg Lisinopril (Prinivil Tab*) 2.5 mg PO DAILY [facility] Last Admin: 10/09/18 08:53 Dose: 2.5 mg Metoprolol Succinate (Toprol Xl Tab*) 50 mg PO DAILY [facility] Last Admin: 10/09/18 08:53 Dose: 50 mg Multi-Ingredient Mouthwash/Gargle (Biotene Dry Mouth Oral Rinse(Nf)) 15 ml MT FIVE TIMES DAILY [facility] Last Admin: 10/09/18 13:35 Dose: 15 ml Multivitamins/Minerals (Theragran/Minerals Tab*) 1 tab PO DAILY [facility] Last Admin: 10/09/18 08:54 Dose: 1 tab Nitrofurantoin Macrocrystals (Macrodantin*) 50 mg PO Q6HR [facility] Sertraline HCl (Zoloft*) 100 mg PO DAILY [facility] Last Admin: 10/09/18 08:56 Dose: 100 mg Tiotropium [place] (Spiriva Cap.Inh*) 1 cap INH DAILY [facility] Last Admin: 10/09/18 08:18 Dose: 1 cap Tramadol HCl (Ultram*) 50 mg PO Q6HR PRN PRN Reason: PAIN Last Admin: 10/08/18 09:29 Dose: 50 mg Verapamil HCl (Calan Tab*) 120 mg PO DAILY [facility] Last Admin: 10/09/18 08:56 Dose: 120 mg Warfarin Sodium (Coumadin Tab(*)) 1.5 mg PO MoTuWeThFrSa@1700 [facility]; Protocol Last Admin: 10/08/18 18:27 Dose: 1.5 mg Warfarin Sodium (Coumadin Tab(*)) 2.5 mg PO GUZMÁN@1700 [facility]; Protocol Last Admin: 10/06/18 19:07 Dose: 2.5 mg Warfarin Sodium (Coumadin Tab(*)) 1 mg PO Guzmán@1700 [facility] Last Admin: 10/06/18 19:07 Dose: 1 mg Vital Signs - 8 hr 10/09/18 12:16 Temperature 98.6 F Pulse Rate 67 Respiratory 16 Rate Blood Pressure 122/65 (mmHg) O2 Sat by Pulse 92 Oximetry Oxygen Devices in Use Now: None Appearance: Comfortable, NAD Eyes: No Scleral Icterus Ears/Nose/Mouth/Throat: Clear Oropharnyx, Mucous Membranes Moist Neck: NL Appearance and Movements; NL JVP Respiratory: Symmetrical Chest Expansion and Respiratory Effort, Clear to Auscultation Cardiovascular: NL Sounds; No Murmurs; No JVD, RRR, No Edema Abdominal: NL Sounds; No Tenderness; No Distention Extremities: No Edema Skin: No Rash or Ulcers Neurological: - - Alert to self. Nutrition: Taking PO's Result Diagrams: 10/08/18 06:17 10/09/18 07:05 Additional Lab and Data: Laboratory Results - last 24 hr 10/09/18 07:05 Sodium 141 Potassium 4.1 Chloride 109 Carbon Dioxide 24 Anion Gap 8 BUN 18 Creatinine 0.83 Est GFR ( Amer) 80.7 Est GFR (Non-Af Amer) 66.7 BUN/Creatinine Ratio 21.7 H Glucose 105 H Calcium 9.5 Magnesium 1.9 Microbiology and Other Data: Microbiology 10/05/18 23:37 Blood Venous Aerobic Blood Culture - Preliminary No Growth Day 3 10/05/18 23:37 Blood Venous Anaerobic Blood Culture - Preliminary No Growth Day 3 10/05/18 23:22 Blood Venous Aerobic Blood Culture - Preliminary No Growth Day 3 10/05/18 23:22 Blood Venous Anaerobic Blood Culture - Preliminary No Growth Day 3 10/05/18 17:59 Urine Urine Culture - Final Enterococcus Faecalis 10/05/18 17:59 Urine Legionella Urinary Antigen - Final Negative Legionella Antigen 10/05/18 17:59 Urine Streptococcus pneumoniae Ag Screen - Final Negative S. pneumo Antigen Assess/Plan/Problems-Billing Assessment: Patient is a 77yo female with a PMH for Parkinson's disease, COPD, Afib, here with probable pneumonia, possibly from aspiration and a possible UTI, who is improving slowly on IV antibiotics. Patient was found to have a low EF on echo and cardiology consulted. - Patient Problems (1) Pneumonia Comment: - Infiltrate on CT with SOB - Patient has no leukocytosis, fever, tachycardia, or sepsis - Improving - No oxygen requirement - Cont Levaquin to cover pneumonia (2) UTI (urinary tract infection) Comment: - Culture revealed enterococcus faecalis, which is not suspectable to Levaquin. But patient cannot be started on Linazolid to cover both due to drug to drug interaction. - Patient placed on Macrodantin (3) Heart failure with reduced ejection fraction Comment: - Echo performed showed current EF 25-30%. No signs of fluid overload. - Cardiology consulted and we appreciate their recommendations: Cont max medical therapy with BB and CCB, patient would benefit from HARPER, lasix not necessary, consider Spironolocatone, patient should follow up with Dr Mccann as outpatient. - Troponins negative at admission - No Chest Pain - No indication for diuresis at this time. - Lisinopril added to started today at 2.5 mg daily (4) Afib Comment: - Rate controlled on Cardizem - Continue Coumadin and monitor INR, therapeutic, continue to monitor - Patient had recent Pacemaker interrogation without issues per son (5) Parkinsonism Comment: - Cont Sinemet - Cont physical therapy - Would very much benefit from Acute/Subacute rehab (6) COPD (chronic obstructive pulmonary disease) Current Visit: No Status: Chronic Code(s): J44.9 - CHRONIC OBSTRUCTIVE PULMONARY DISEASE, UNSPECIFIED SNOMED Code(s): 36448225 Comment: - No exacerbation, continue home Spiriva and PRN Nebs (7) Dementia Current Visit: No Status: Chronic Priority: Medium Code(s): F03.90 - UNSPECIFIED DEMENTIA WITHOUT BEHAVIORAL DISTURBANCE SNOMED Code(s): 61163285 Comment: - Likely related to Parkinson's disease - Continue Sinemet at current dose. (8) History of hypertension Current Visit: No Status: Chronic Priority: Medium Code(s): Z86.79 - PERSONAL HISTORY OF OTHER DISEASES OF THE CIRCULATORY SYSTEM SNOMED Code(s): 140500354 Comment: - Continue metoprolol, verapmil - Normotensive - Adding Lisinopril due to HFrEF, therefore, monitor for hypotension (9) Hypothyroid Comment: - TSH in in the appropriate range- continue current dose of levothyroxine. 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 - Afib on monitor with occasional pacer spikes (11) DVT prophylaxis Comment: - Coumadin (12) DNR (do not resuscitate) Status and Disposition: Inpatient for treatment of Pneumonia and UTI and new diagnosis of HFrEF. Attending: Gonzalez Layne
[2018-10-09] MEDS ORDERED: Levofloxacin 500 MG IVPREMIX(* 500 MG/100 ML BAG IVPB SCH (17:00)
[2018-10-09] MEDS: Warfarin TAB(*) 1 MG PO SCH (17:26)
[2018-10-09] MEDS ORDERED: Nitrofurantoin Macrocrystals* 50 MG CAP PO SCH (18:00)
[2018-10-09] MEDS: ceFUROXime TAB(*) 250 MG PO SCH (20:36)
[2018-10-09] MEDS: Docusate CAP* 100 MG PO SCH (20:36)
[2018-10-10] MEDS: Levothyroxine TAB* 50 MCG TAB PO SCH (05:48)
[2018-10-10] MEDS: CMCS - Oral Rinse (Biotene)(NF) 237 ML or 473 ML ORAL RINSE BTL MT SCH ×2 (05:50→08:15)
[2018-10-10] MEDS: Carbidopa/Levodop 25/100 MG TAB(*) PO SCH (08:12)
[2018-10-10] MEDS: Lisinopril TAB* 5 MG PO SCH (08:12)
[2018-10-10] MEDS: Sertraline* 100 MG TAB PO SCH (08:12)
[2018-10-10] MEDS: Metoprolol Succinate XL TAB* 50 MG PO SCH (08:12)
[2018-10-10] MEDS: Verapamil TAB* 120 MG PO SCH (08:12)
[2018-10-10] MEDS: ceFUROXime TAB(*) 250 MG PO SCH (08:12)
[2018-10-10] MEDS: Multivitamins/Minerals TAB PO SCH (08:12)
[2018-10-10] MEDS: Clotrimazole 1% CREAM* 45 GM TOPICAL SCH (08:15)
[2018-10-10] MEDS: Tiotropium CAP.INH* CAP.INH/18 MCG (USE ORDER SET !) INH SCH (08:43)
[2018-10-10 09:56] VITALS: BP 141/95
[2018-10-10] MEDS ORDERED: Levofloxacin TAB* 500 MG PO SCH (11:00)
--- NOTE | 2018-10-10 13:07 | DS ---
CC: Dr. Quiroga; Dr. Mccann * DISCHARGE SUMMARY: DATE OF ADMISSION: 10/05/18 DATE OF DISCHARGE: 10/10/18 PRIMARY CARE PROVIDER: Dr. Quiroga. CONSULTING PHYSICIAN: Dr. Lopez. OUTPATIENT DIRECTOR OF TEACHER EDUCATION: Dr. Mccann. ATTENDING PROVIDER: Dr. Last * (DICTATED BY MARVIN MORENO NP) PRIMARY DIAGNOSES: 1. Pneumonia. 2. Heart failure with reduced ejection fraction. 3. Atrial fibrillation. SECONDARY DIAGNOSES: 1. Parkinson's. 2. Chronic obstructive pulmonary disease. 3. Dementia. 4. Hypertension. 5. Hypothyroid. 6. Tachybrady syndrome. STUDIES WHILE IN THE HOSPITAL: 1. EKG: Impression: Atrial fibrillation, left bundle branch block. No ST changes. 2. Brain CT: No evidence for acute infarct abnormality. 3. Chest x-ray: There is a nodular infiltrate at the right lung base 4. Chest CT: Small left pleural effusion. Mild emphysema with subtle right lobe finding suggestive of possible early pneumonia and left pleural effusion and bibasilar lung volume loss. 5. Transthoracic echo: Impression: [id number] concentric left ventricular hypertrophy is observed. There is global hypokinesis of the left ventricle with minor regional variation. Estimated ejection fraction is 25% to 30%. Abnormal ventricular septal wall motion consistent with right ventricular pacemaker. Abnormal left ventricle diastolic filling is observed consistent with impaired relaxation. Right ventricle chamber size and systolic function are within normal limits. Pacemaker is visualized in the right ventricle. Aortic valve leaflets are moderately thickened. Mild aortic stenosis. Mean gradient of the aorta value is 6 mmHg. No evidence of aortic regurgitation. Mild mitral regurgitation. [id number] tricuspid regurgitation. Evidence of borderline pulmonary hypertension. No significant pericardial effusion. Compared to study on 12/02/15, the LV function is much lower, previously LV function was 55% to 60%. Valve structures are the same. DISCHARGE HOME MEDICATIONS: [place] Medications: 1. Levaquin 500 mg p.o. daily x3 days, starting 10/10/18. 2. Lisinopril 2.5 mg p.o. daily. Continued Home Medications: 1. DuoNeb 1 inhalation q.6 hours p.r.n. 2. Sinemet 1 tab p.o. q.i.d. 3. Clotrimazole 1 application topical daily. 4. Colace 100 mg p.o. at bedtime. 5. Synthroid 50 mcg p.o. q.a.m. 6. Metoprolol 50 mg p.o. daily. 7. Multi-ingredient mouthwash gargle, 15 mL, 5 times daily. 8. Multivitamin 1 tab p.o. daily. 9. Zoloft 100 mg p.o. daily. 10. Spiriva 1 cap inhalation daily. 11. Tramadol 50 mg p.o. q.6 hours p.r.n. 12. Verapamil 120 mg p.o. daily. 13. Coumadin 1.5 mg p.o. Sunday, Sunday, Sunday, Sunday, and Sunday. 14. Coumadin 2.5 mg p.o. Sunday. 15. Coumadin 1 mg p.o. Sunday Discontinued Home Medications: No home medications were discontinued. Changed Home Medications: No home medications were changed. HISTORY OF PRESENT ILLNESS/HOSPITAL COURSE: Ms. Restrepo is a 78-year-old female with past medical history significant for COPD, hypothyroid, AFib, tachybrady syndrome, who presented to the emergency room on 10/05/18 with complaints of shortness of breath, decreased appetite, and feeling lightheaded. For further details, please see history and physical dictated by Dr. Morris, but in short, the patient was having subjective fevers at home and also coughing up white yellow sputum. She also reported her chest felt heavy. While in the emergency room, imaging was completed, chest x-ray and CT, which is suggestive of right upper lobe pneumonia. Therefore, she was admitted and started on Levaquin. In addition, the patient's urinalysis was suspicious for UTI Levaquin was considered to cover this as well. Due to the patient's shortness of breath, echo was repeated and as mentioned above, it revealed a reduced ejection fraction. Therefore, while admitted into the hospital, she was also seen by Dr. Lopez, mechanical engineering advisor, who reviewed the patient's echo and provided the following recommendations. He recommended to continue with maximum medical therapy. She is on a beta-constance and calcium channel constance, which she should continue. He believed she would benefit from an HARPER inhibitor. Therefore, she was started on 2.5 mg daily and tolerating it well. He did not believe Lasix was necessary as this patient did not appear to be in heart failure exacerbation. He also recommends that spironolactone should be considered in the future. The patient has improved throughout her admission as her cough has decreased, she is no longer short of breath, and her appetite is improved. Therefore, the patient will be discharged home. The patient is stable for discharge today. The patient will be discharged home where she has a setup that is suitable for her care with her son. REVIEW OF SYSTEMS: The patient reports she continues to have a slight cough, but it has improved. The patient denies shortness of breath, chest pain, palpitations, nausea, vomiting, diarrhea, any urinary symptoms, fever, chills. The patient does report mild weakness. PHYSICAL EXAM: Vital Signs: Temp 98.3, HR 68, RR 18, O2 saturation 97% on room air, BP 141/95. General: Ms. Restrepo is a 78-year-old female with a past medical history significant for COPD, hypothyroid, atrial fibrillation, tachybrady syndrome, Parkinson's, dementia, who is lying in bed. She reports improvement. She is in no acute distress. HEENT: PERRLA. EOMs intact. Oral mucosa is moist without lesion. Neck: Supple. No lymphadenopathy. Cardiac: S1, S2 present. No murmurs, rubs or gallops. Respiratory: Lungs sounds are clear throughout. No rhonchi, wheezes, or rubs. Abdomen: Soft, nontender. Bowel sounds x4. Extremities: No edema. No clubbing or cyanosis. Skin: Intact. Neuro: No focal deficits. LABORATORY DATA: WBC 7.6, hemoglobin 12.1, hematocrit 38, platelets 196. INR 2.26. Sodium 141, potassium 4.1, chloride 109, carbon dioxide 24, BUN 18, creatinine 0.83, glucose 105. DISCHARGE PLAN/FOLLOWUP: 1. Pneumonia: As mentioned in the HPI, the patient has improved. The patient should continue Levaquin 500 mg p.o. daily x3 days. The patient should also follow up with her primary care and have a repeat chest x-ray in 1 month. 2. Heart failure with a reduced ejection fraction: As mentioned in the HPI, Dr. Lopez provided recommendations. The patient was started on lisinopril 2.5 mg daily and tolerated well. The patient should continue this. The patient should follow up with Dr. Mccann in the next 2 to 3 weeks. 3. AFib: The patient should continue Cardizem. The patient has been rate controlled while inpatient. The patient should continue Coumadin. The patient' s INR is therapeutic. 4. Parkinson disease: The patient should continue Sinemet. The patient should continue supportive care. I discussed subacute rehab with the patient's son, but he declined. 5. UTI: Initially, there was concern for UTI when admitted. Therefore, Levaquin was started to cover both UTI and pneumonia. The patient has been improving on Levaquin alone. Microbiology grew out Enterococcus faecalis, which is not susceptible to Levaquin. We consider changing antibiotics, but since the patient is improving on Levaquin, we suspect that this Enterococcus faecalis is possible colonization and not UTI. The patient is also symptom free and showing no signs of infection. 6. COPD: The patient should continue her home meds Spiriva and p.r.n. nebs. 7. Dementia: The patient should continue Sinemet and supportive care. 8. Hypertension: The patient should continue metoprolol, verapamil, and lisinopril. The patient should follow up with her primary care and mechanical engineering advisor. 9. Hypothyroid: TSH is within normal range while inpatient. The patient should continue Synthroid as same. 10. Tachybrady syndrome: The patient has pacemaker and should follow up with mechanical engineering advisor. 11. Education: I discussed the discharge plan with her son and the patient. Both state understanding. Son states understanding the signs of new or worsening symptoms and when to return to the emergency department. This plan was also discussed with my attending, Dr. Last, who agrees with my plan. TIME SPENT: Approximately 35 minutes was spent on this discharge, greater than half of that time was spent [id number] with the patient discussing my discharge plans and assessment. MARVIN MORENO, JEN [id number]/[facility] #: [id number] [place]
== END 2018-10-10 12:35 | disposition home or self-care (01) | DRG 194 ==
LOC: ED 16:25 → MED 23:03
PROVIDERS: ADMIT Internal Medicine; ATTEND Hospitalist
DX: J18.1 Lobar pneumonia, unspecified organism (principal); I50.20 Unspecified systolic (congestive) heart failure; J44.0 Chronic obstructive pulmonary disease with (acute) lower respiratory infection; E11.9 Type 2 diabetes mellitus without complications; I11.0 Hypertensive heart disease with heart failure; G47.30 Sleep apnea, unspecified; E03.9 Hypothyroidism, unspecified; K21.9 Gastro-esophageal reflux disease without esophagitis; G25.81 Restless legs syndrome; G20 Parkinson's disease; F02.80 Dementia in other diseases classified elsewhere, unspecified severity, without behavioral disturbance, psychotic disturbance, mood disturbance, and anxiety; F41.9 Anxiety disorder, unspecified; Z66 Do not resuscitate; Z96.643 Presence of artificial hip joint, bilateral; I48.2 Chronic atrial fibrillation; B95.2 Enterococcus as the cause of diseases classified elsewhere; I44.7 Left bundle-branch block, unspecified; I08.3 Combined rheumatic disorders of mitral, aortic and tricuspid valves; I27.20 Pulmonary hypertension, unspecified; F32.9 Major depressive disorder, single episode, unspecified; Z88.6 Allergy status to analgesic agent; Z88.1 Allergy status to other antibiotic agents; Z88.0 Allergy status to penicillin; Z88.7 Allergy status to serum and vaccine; Z88.8 Allergy status to other drugs, medicaments and biological substances; Z98.42 Cataract extraction status, left eye; Z98.41 Cataract extraction status, right eye; Z95.0 Presence of cardiac pacemaker; Z86.19 Personal history of other infectious and parasitic diseases; Z82.3 Family history of stroke; Z82.5 Family history of asthma and other chronic lower respiratory diseases; Z80.0 Family history of malignant neoplasm of digestive organs; Z82.49 Family history of ischemic heart disease and other diseases of the circulatory system; Z87.891 Personal history of nicotine dependence; Z98.1 Arthrodesis status; Z80.3 Family history of malignant neoplasm of breast; Z79.01 Long term (current) use of anticoagulants
CPT/HCPCS: 36415; 70450; 71046; 71250; 80048; 80053; 80061; 81003; 81015; 82550; 82553; 83036; 83605; 83735; 83880; 84443; 84484; 85025; 85610; 87040; 87077; 87086; 87186; 87899; 90686; 93005; 93306; 94640; 99285; A9270-GY; G8978-GP-CK; G8979-GP-CJ; J1956; J3475

== ENCOUNTER 2019-03-09 15:24 | Emergency (ER) | payer OTHER ==
[2019-03-09 17:17] LABS: Urine Appearance Cloudy; Urine Bacteria 1+ (Absent); Urine Bilirubin Negative (Negative); Urine Blood Negative (Negative); Urine Color Yellow; Urine Glucose Negative (Negative); Urine Ketones Trace (Negative); Urine Nitrite Negative (Negative); Urine Protein Negative (Negative); Urine Red Blood Cell 2+(6-10/hpf) (Absent); Urine Squamous Epithelial Cell Present (Absent); Urine Urobilinogen Negative (Negative); Urine White Blood Cell 3+(>20/hpf) (Absent)
[2019-03-09 17:25] LABS: ABS Basophils 0.1 10^3/ul (0-0.2); ABS Eosinophils 0.2 10^3/ul (0-0.6); ABS Lymphocytes 1.6 10^3/ul (1.0-4.8); ABS Monocytes 0.7 10^3/ul (0-0.8); ABS Neutrophils 5.1 10^3/ul (1.5-7.7); Eosinophil % 2.2 %; Hematocrit 40 % (35-47); Hemoglobin 13.1 g/dL (12.0-16.0); Lymphocyte % 20.7 %; Mean Corpuscular HGB Conc 33 g/dL (31-36); Mean Corpuscular Hemoglobin 25 pg (27-31); Mean Corpuscular Volume 75 fL (80-97); Mean Platelet Volume 9.3 fL (7.4-10.4); Platelet Count 193 10^3/uL (150-450); Red Blood Count 5.36 10^6 /uL (3.70-4.87); Red Cell Distribution Width 19 % (10-15); White Blood Count 7.6 10^3/uL (3.5-10.8)
[2019-03-09 17:34] LABS: Activated Partial Thrombo Time 55.1 seconds (26.0-38.0); INR 3.2 (0.82-1.09)
[2019-03-09 17:42] LABS: Albumin 4.2 g/dL (3.2-5.2); Albumin/Globulin Ratio 1.4 (1-3); BUN/Creatinine Ratio 19.3 (8-20); C Reactive Protein 27.05 mg/L (<8.01); Calcium 9.7 mg/dL (8.6-10.3); EGFR African American 75.4 (>60); EGFR Non-African American 62.3 (>60); Potassium 4.5 mmol/L (3.5-5.0); Total Bilirubin 0.7 mg/dL (0.2-1.0); Total Protein 7.2 g/dL (6.4-8.9)
[2019-03-09 17:45] LABS: Troponin I 0.01 ng/mL (<0.04)
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
[2019-03-09] MEDS ORDERED: Acetaminophen TAB* 325 MG PO ONE (18:36)
[2019-03-09] MEDS ORDERED: Cephalexin CAP* 500 MG PO ONE (18:38)
[2019-03-09] MEDS ORDERED: guaiFENesin LIQ* 100 MG/5 ML UDC PO ONE (18:46)
[2019-03-09 19:18] VITALS: BP 130/80
--- NOTE | 2019-03-11 07:02 | PN ---
Progress Note - Progress Note Date of Service: 03/11/19 Note: patient preliminary urine culture grew Enterococcus >100,000. patient was placed on keflex will wait for final culture for sensitivity.
--- NOTE | 2019-03-12 06:08 | PN ---
Progress Note - Progress Note Date of Service: 03/12/19 Note: patient was placed on keflex which is not sensitive to. will switch to macrobid 100mg bidx5 days. spoke with son about switch
== END 2019-03-09 19:30 | disposition home or self-care (01) ==
LOC: ED 15:24
DX: J06.9 Acute upper respiratory infection, unspecified (principal); N39.0 Urinary tract infection, site not specified; B95.2 Enterococcus as the cause of diseases classified elsewhere; Z87.440 Personal history of urinary (tract) infections; I48.91 Unspecified atrial fibrillation; I44.7 Left bundle-branch block, unspecified; R51 Headache; M54.2 Cervicalgia; Z79.01 Long term (current) use of anticoagulants; E11.9 Type 2 diabetes mellitus without complications; I10 Essential (primary) hypertension; J44.9 Chronic obstructive pulmonary disease, unspecified; Z99.81 Dependence on supplemental oxygen; F03.90 Unspecified dementia, unspecified severity, without behavioral disturbance, psychotic disturbance, mood disturbance, and anxiety; Z95.810 Presence of automatic (implantable) cardiac defibrillator; Z88.1 Allergy status to other antibiotic agents; Z88.5 Allergy status to narcotic agent; Z88.0 Allergy status to penicillin; Z88.8 Allergy status to other drugs, medicaments and biological substances; Z87.891 Personal history of nicotine dependence
CPT/HCPCS: 36415; 70450; 71045; 80053; 81003; 81015; 82550; 82553; 82803; 83605; 83880; 84484; 85025; 85610; 85730; 86140; 87077; 87086; 87186; 93005; 99284; A9270-GY

== ENCOUNTER 2019-08-13 10:01 | Emergency (ER) | payer MEDICARE, OTHER ==
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
[2019-08-13 12:27] VITALS: BP 103/58
== END 2019-08-13 12:07 | disposition home or self-care (01) ==
LOC: ED 10:01
DX: M54.5 Low back pain (principal); W18.30XA Fall on same level, unspecified, initial encounter; Y92.9 Unspecified place or not applicable; I10 Essential (primary) hypertension; I48.91 Unspecified atrial fibrillation; J44.9 Chronic obstructive pulmonary disease, unspecified; E11.9 Type 2 diabetes mellitus without complications; G20 Parkinson's disease; F02.80 Dementia in other diseases classified elsewhere, unspecified severity, without behavioral disturbance, psychotic disturbance, mood disturbance, and anxiety; E07.9 Disorder of thyroid, unspecified; D64.9 Anemia, unspecified; F41.9 Anxiety disorder, unspecified; F32.9 Major depressive disorder, single episode, unspecified; Z99.81 Dependence on supplemental oxygen; Z87.891 Personal history of nicotine dependence; Z86.718 Personal history of other venous thrombosis and embolism; Z90.89 Acquired absence of other organs; Z95.0 Presence of cardiac pacemaker; Z79.01 Long term (current) use of anticoagulants; Z79.899 Other long term (current) drug therapy; Z88.1 Allergy status to other antibiotic agents; Z88.5 Allergy status to narcotic agent; Z88.0 Allergy status to penicillin; Z88.8 Allergy status to other drugs, medicaments and biological substances
CPT/HCPCS: 72170; 72220; 99283

== ENCOUNTER 2020-10-27 16:29 | Observation (INO) ==
[2020-10-27 19:15] LABS: ABS Basophils 0.1 10^3/ul (0-0.2); ABS Eosinophils 0.2 10^3/ul (0-0.6); ABS Lymphocytes 1.9 10^3/ul (1.0-4.8); ABS Monocytes 0.5 10^3/ul (0-0.8); Eosinophil % 2.9 %; Hematocrit 42 % (35-47); Hemoglobin 13.8 g/dL (12.0-16.0); Lymphocyte % 21.4 %; Mean Corpuscular HGB Conc 33 g/dL (31-36); Mean Corpuscular Hemoglobin 29 pg (27-31); Mean Corpuscular Volume 86 fL (80-97); Nucleated Red Blood Cells % 0.1; Platelet Count 187 10^3/uL (150-450); Red Blood Count 4.81 10^6 /uL (3.70-4.87); Red Cell Distribution Width 16 % (10-15); White Blood Count 8.6 10^3/uL (3.5-10.8)
[2020-10-27 19:36] LABS: Albumin 3.8 g/dL (3.2-5.2); Albumin/Globulin Ratio 1.4 (1-3); BUN/Creatinine Ratio 32.1 (8-20); Calcium 9.5 mg/dL (8.6-10.3); EGFR African American 82.5 (>60); EGFR Non-African American 68.2 (>60); Globulin 2.8 g/dL (2-4); Magnesium 1.9 mg/dL (1.9-2.7); Potassium 4.4 mmol/L (3.5-5.0); Total Bilirubin 0.4 mg/dL (0.2-1.0); Total Protein 6.6 g/dL (6.4-8.9)
[2020-10-27 19:40] LABS: CKMB ng/mL 0.7 ng/mL (0.6-6.3)
[2020-10-27 20:04] LABS: Activated Partial Thrombo Time 43.2 seconds (26.0-38.0); INR 2.47 (0.82-1.09)
[2020-10-27 20:06] LABS: TSH Ultra Thyroid Stim Horm 2.17 mcIU/mL (0.34-5.60)
[2020-10-27] MEDS ORDERED: Dextrose 50% Syringe 50 ml 25 GM/50 ML SYRINGE IV PUSH PRN (20:35)
[2020-10-27] MEDS ORDERED: Albuterol HFA INHALER 8 gm MDI INH PRN (21:15)
[2020-10-27] MEDS: Carbidopa/Levodop 25/100 MG TAB PO SCH (22:45)
[2020-10-28 04:37] LABS: INR 2.26 (0.82-1.09)
[2020-10-28] MEDS: Carbidopa/Levodop 25/100 MG TAB PO SCH ×2 (07:42→13:29)
[2020-10-28] MEDS ORDERED: Aminophylline 25 MG/ML VIAL ONE ×2 (07:59→11:42)
[2020-10-28] MEDS ORDERED: Regadenoson 0.4 MG/5 ML SYRINGE ONE ×2 (08:10→11:42)
[2020-10-28] MEDS ORDERED: SPIRIVA Respimat (tiotropium) 2.5 mcg/inh Inhaler INH SCH (09:00)
[2020-10-28 12:25] VITALS: BP 94/80
[2020-10-28] MEDS ORDERED: Warfarin DAILY REMINDER **NOTE FOLLOW UP SCH (16:00)
== END 2020-10-28 15:50 | disposition home or self-care (01) ==
LOC: MEDTELE 16:29 → ED 16:29 → MEDTELE 21:41
PROVIDERS: ADMIT Internal Medicine; ATTEND Internal Medicine

== ENCOUNTER 2021-08-26 10:39 | Inpatient (IN) ==
[2021-08-26 12:56] LABS: ABS Eosinophils 0.2 10^3/ul (0-0.6); ABS Lymphocytes 1.2 10^3/ul (1.0-4.8); ABS Monocytes 0.5 10^3/ul (0-0.8); ABS Neutrophils 5.9 10^3/ul (1.5-7.7); Hematocrit 43 % (35-47); Lymphocyte % 14.8 %; Mean Corpuscular HGB Conc 32 g/dL (31-36); Mean Corpuscular Hemoglobin 28 pg (27-31); Mean Corpuscular Volume 86 fL (80-97); Mean Platelet Volume 9.8 fL (7.4-10.4); Platelet Count 173 10^3/uL (150-450); Red Blood Count 5.04 10^6 /uL (3.70-4.87); Red Cell Distribution Width 17 % (10-15); White Blood Count 7.8 10^3/uL (3.5-10.8)
[2021-08-26 12:56] LABS: Activated Partial Thrombo Time 44.9 seconds (26.0-38.0); INR 2.5 (0.86-1.15)
[2021-08-26 12:57] LABS: Eosinophil % 2.5 %
[2021-08-26 13:07] LABS: Albumin 4.3 g/dL (3.2-5.2); Albumin/Globulin Ratio 1.5 (1-3); C Reactive Protein 11.29 mg/L (<8.01); Calcium 9.9 mg/dL (8.6-10.3); Globulin 2.8 g/dL (2-4); Total Bilirubin 0.6 mg/dL (0.2-1.0); Total Protein 7.1 g/dL (6.4-8.9); eGFR CKD-EPI 58.7 (>60)
[2021-08-26] MEDS ORDERED: Lactated Ringers 1000 ml BAG 1,000 ML IV ONE (13:08)
[2021-08-26] MEDS ORDERED: Lactated Ringers 1000 ml BAG 500 ML IV ONE (13:10)
[2021-08-26 14:38] LABS: Urine Appearance Turbid; Urine Bilirubin Negative (Negative); Urine Blood Negative (Negative); Urine Color Amber; Urine Glucose Negative (Negative); Urine Ketones Trace (Negative); Urine Nitrite Negative (Negative); Urine Protein Negative (Negative); Urine Specific Gravity 1.016 (1.002-1.030); Urine Urobilinogen Negative (Negative)
[2021-08-26 16:40] LABS: Urine Bacteria 3+ (Absent); Urine Red Blood Cell 1+(3-5/hpf) (Absent); Urine White Blood Cell 1+(6-10/hpf) (Absent)
[2021-08-26 16:46] LABS: Potassium 4.6 mmol/L (3.5-5.0)
[2021-08-26] MEDS ORDERED: cefTRIAXone 1 gm/50 mL NS BAG 1 GM/50 ML BAG IV ONE (17:50)
[2021-08-26] MEDS ORDERED: Ondansetron 4 mg VIAL 2 MG/ML 2 ml VIAL IV PRN (21:36)
[2021-08-26] MEDS ORDERED: Lactated Ringers 500 ml BAG 500 ML IV ONE (21:43)
[2021-08-26] MEDS ORDERED: Albuterol HFA INHALER 8 gm MDI INH PRN (21:45)
[2021-08-26] MEDS ORDERED: Enoxaparin 40 MG/0.4 ML SYR SUBCUT SCH (22:00)
[2021-08-27] MEDS: Carbidopa/Levodop 25/100 MG TAB PO SCH ×4 (00:49→21:20)
[2021-08-27] MEDS: Nystatin TOP POWDER 15 GM BTL TOPICAL SCH ×5 (02:46→22:51)
[2021-08-27] MEDS ORDERED: Warfarin per PHARMACY **NOTE FOLLOW UP SCH (06:00)
[2021-08-27] MEDS: SPIRIVA Respimat (tiotropium) 2.5 mcg/inh Inhaler INH SCH (07:11)
[2021-08-27 10:16] LABS: ABS Eosinophils 0.1 10^3/ul (0-0.6); ABS Monocytes 0.3 10^3/ul (0-0.8); ABS Neutrophils 5.6 10^3/ul (1.5-7.7); Eosinophil % 0.8 %; Hematocrit 40 % (35-47); Hemoglobin 13.4 g/dL (12.0-16.0); Lymphocyte % 14.3 %; Mean Corpuscular HGB Conc 33 g/dL (31-36); Mean Corpuscular Hemoglobin 28 pg (27-31); Mean Corpuscular Volume 84 fL (80-97); Mean Platelet Volume 9.7 fL (7.4-10.4); Platelet Count 176 10^3/uL (150-450); Red Blood Count 4.78 10^6 /uL (3.70-4.87); Red Cell Distribution Width 16 % (10-15); White Blood Count 7.1 10^3/uL (3.5-10.8)
[2021-08-27] MEDS ORDERED: Vancomycin 1,000 MG in NS 0.9% 250 ml 250 ML IVPB ONE (10:35)
[2021-08-27 10:36] LABS: Calcium 9.6 mg/dL (8.6-10.3); eGFR CKD-EPI 71.7 (>60)
[2021-08-27 10:52] LABS: Potassium 4.5 mmol/L (3.5-5.0)
[2021-08-27] MEDS ORDERED: Vancomycin per Pharmacy 1 EA NOTE FOLLOW UP SCH (11:00)
[2021-08-27 11:22] LABS: INR 2.77 (0.86-1.15)
[2021-08-27] MEDS ORDERED: cefTRIAXone 1 gm/50 mL NS BAG 1 GM/50 ML BAG IVPB SCH (18:00)
[2021-08-27] MEDS: Vancomycin 750 MG in NS 0.9% 250 ML IVPB SCH (22:51)
[2021-08-28 05:54] LABS: ABS Eosinophils 0.1 10^3/ul (0-0.6); ABS Lymphocytes 1.4 10^3/ul (1.0-4.8); ABS Monocytes 0.6 10^3/ul (0-0.8); ABS Neutrophils 5.4 10^3/ul (1.5-7.7); Eosinophil % 1.7 %; Hematocrit 40 % (35-47); Hemoglobin 13.3 g/dL (12.0-16.0); Lymphocyte % 18.6 %; Mean Corpuscular HGB Conc 33 g/dL (31-36); Mean Corpuscular Hemoglobin 28 pg (27-31); Mean Corpuscular Volume 84 fL (80-97); Mean Platelet Volume 9.2 fL (7.4-10.4); Platelet Count 182 10^3/uL (150-450); Red Blood Count 4.75 10^6 /uL (3.70-4.87); Red Cell Distribution Width 16 % (10-15); White Blood Count 7.5 10^3/uL (3.5-10.8)
[2021-08-28 06:04] LABS: INR 3.73 (0.86-1.15)
[2021-08-28 06:15] LABS: Calcium 9.5 mg/dL (8.6-10.3); HDL Cholesterol 39.2 mg/dL; Potassium 4.1 mmol/L (3.5-5.0); eGFR CKD-EPI 72.7 (>60)
[2021-08-28] MEDS: SPIRIVA Respimat (tiotropium) 2.5 mcg/inh Inhaler INH SCH (07:58)
[2021-08-28] MEDS: Carbidopa/Levodop 25/100 MG TAB PO SCH ×2 (09:06→22:04)
[2021-08-28] MEDS: Nystatin TOP POWDER 15 GM BTL TOPICAL SCH ×3 (09:06→23:47)
[2021-08-28] MEDS: Vancomycin 750 MG in NS 0.9% 250 ML IVPB SCH ×2 (10:57→22:01)
[2021-08-28] MEDS ORDERED: Warfarin - No Order Today **NOTE FOLLOW UP ONE (17:00)
[2021-08-29 07:17] LABS: INR 4.29 (0.86-1.15)
[2021-08-29] MEDS: SPIRIVA Respimat (tiotropium) 2.5 mcg/inh Inhaler INH SCH (08:20)
[2021-08-29] MEDS: Carbidopa/Levodop 25/100 MG TAB PO SCH ×2 (10:05→22:01)
[2021-08-29] MEDS: Nystatin TOP POWDER 15 GM BTL TOPICAL SCH ×3 (10:06→22:10)
[2021-08-29] MEDS ORDERED: Vancomycin Trough Check NOTE FOLLOW UP ONE (11:00)
[2021-08-29] MEDS: Vancomycin 750 MG in NS 0.9% 250 ML IVPB SCH ×2 (12:40→22:01)
[2021-08-29] MEDS ORDERED: Warfarin - No Order Today **NOTE FOLLOW UP ONE (17:00)
[2021-08-29] MEDS: Warfarin DAILY REMINDER **NOTE FOLLOW UP SCH (17:49)
[2021-08-30 06:08] LABS: Hematocrit 41 % (35-47); Hemoglobin 13.4 g/dL (12.0-16.0); Mean Corpuscular HGB Conc 33 g/dL (31-36); Mean Corpuscular Hemoglobin 28 pg (27-31); Mean Corpuscular Volume 84 fL (80-97); Platelet Count 191 10^3/uL (150-450); Red Cell Distribution Width 16 % (10-15); White Blood Count 9.4 10^3/uL (3.5-10.8)
[2021-08-30 06:22] LABS: INR 3.44 (0.86-1.15)
[2021-08-30 06:37] LABS: Calcium 9.3 mg/dL (8.6-10.3); Magnesium 1.8 mg/dL (1.9-2.7)
[2021-08-30] MEDS ORDERED: Magnesium Sulfate IV 3 GM in NS 0.9% 100 ml BAG 100 ML IVPB ONE (08:00)
[2021-08-30] MEDS: Carbidopa/Levodop 25/100 MG TAB PO SCH ×2 (08:26→21:33)
[2021-08-30] MEDS: SPIRIVA Respimat (tiotropium) 2.5 mcg/inh Inhaler INH SCH (08:34)
[2021-08-30] MEDS: Nystatin TOP POWDER 15 GM BTL TOPICAL SCH ×3 (08:57→21:34)
[2021-08-30] MEDS: Vancomycin 750 MG in NS 0.9% 250 ML IVPB SCH (12:39)
[2021-08-30] MEDS ORDERED: COVID-19 VACCINE, MRNA(PFIZER)/PF 30 MCG/0.3 ML IM ONE (14:00)
[2021-08-30] MEDS ORDERED: Lactated Ringers 1000 ml BAG 1,000 ML IV SCH (15:00)
[2021-08-30] MEDS ORDERED: Warfarin - No Order Today **NOTE FOLLOW UP ONE (17:00)
[2021-08-30] MEDS: Warfarin DAILY REMINDER **NOTE FOLLOW UP SCH (17:44)
[2021-08-30 18:07] LABS: Urine Appearance Cloudy; Urine Bilirubin Negative (Negative); Urine Blood 3+ (Negative); Urine Color Amber; Urine Glucose Negative (Negative); Urine Ketones Trace (Negative); Urine Nitrite Negative (Negative); Urine Protein 2+(100 mg/dL) (Negative); Urine Specific Gravity 1.027 (1.002-1.030); Urine Urobilinogen Negative (Negative)
[2021-08-30 18:16] LABS: Urine Bacteria Absent (Absent); Urine Red Blood Cell 3+(>10/hpf) (Absent); Urine Squamous Epithelial Cell Present (Absent); Urine White Blood Cell 1+(6-10/hpf) (Absent); Urine Yeast Present (Absent)
[2021-08-31 06:20] LABS: Hematocrit 36 % (35-47); Mean Corpuscular HGB Conc 33 g/dL (31-36); Mean Corpuscular Hemoglobin 28 pg (27-31); Mean Corpuscular Volume 84 fL (80-97); Mean Platelet Volume 9.1 fL (7.4-10.4); Platelet Count 169 10^3/uL (150-450); Red Cell Distribution Width 16 % (10-15); White Blood Count 7.9 10^3/uL (3.5-10.8)
[2021-08-31 06:31] LABS: INR 2.79 (0.86-1.15)
[2021-08-31 06:37] LABS: Calcium 8.7 mg/dL (8.6-10.3); Magnesium 1.9 mg/dL (1.9-2.7); Potassium 3.6 mmol/L (3.5-5.0)
[2021-08-31 06:43] LABS: eGFR CKD-EPI 82.2 (>60)
[2021-08-31] MEDS ORDERED: Magnesium Sulfate 2 gm BAG 2 GM/50 ML BAG IVPB ONE (07:18)
[2021-08-31] MEDS: SPIRIVA Respimat (tiotropium) 2.5 mcg/inh Inhaler INH SCH (08:38)
[2021-08-31] MEDS: Carbidopa/Levodop 25/100 MG TAB PO SCH ×2 (09:46→20:41)
[2021-08-31] MEDS: Nystatin TOP POWDER 15 GM BTL TOPICAL SCH ×3 (09:46→20:46)
[2021-08-31] MEDS: Polyethylene Glycol 3350 17 GM PACKET PO SCH (17:10)
[2021-08-31] MEDS: Warfarin DAILY REMINDER **NOTE FOLLOW UP SCH (17:12)
[2021-09-01 05:19] LABS: INR 2.89 (0.86-1.15)
[2021-09-01] MEDS ORDERED: Vancomycin Trough Check NOTE FOLLOW UP ONE (10:30)
[2021-09-01] MEDS: Polyethylene Glycol 3350 17 GM PACKET PO SCH (10:42)
[2021-09-01] MEDS: Carbidopa/Levodop 25/100 MG TAB PO SCH ×2 (10:43→19:36)
[2021-09-01] MEDS: Nystatin TOP POWDER 15 GM BTL TOPICAL SCH ×3 (10:46→19:30)
[2021-09-01] MEDS: Warfarin DAILY REMINDER **NOTE FOLLOW UP SCH (17:37)
[2021-09-02 07:13] LABS: INR 2.93 (0.86-1.15)
[2021-09-02] MEDS: Polyethylene Glycol 3350 17 GM PACKET PO SCH ×2 (10:18→10:19)
[2021-09-02] MEDS: Carbidopa/Levodop 25/100 MG TAB PO SCH ×2 (10:19→21:14)
[2021-09-02] MEDS: Nystatin TOP POWDER 15 GM BTL TOPICAL SCH ×3 (10:20→21:15)
[2021-09-02] MEDS: Warfarin DAILY REMINDER **NOTE FOLLOW UP SCH (17:44)
[2021-09-03 08:52] LABS: INR 3.21 (0.86-1.15)
[2021-09-03] MEDS: Carbidopa/Levodop 25/100 MG TAB PO SCH ×2 (10:36→21:11)
[2021-09-03] MEDS: Polyethylene Glycol 3350 17 GM PACKET PO SCH (10:45)
[2021-09-03] MEDS: Nystatin TOP POWDER 15 GM BTL TOPICAL SCH ×3 (10:47→21:13)
[2021-09-03] MEDS: Warfarin DAILY REMINDER **NOTE FOLLOW UP SCH (17:28)
[2021-09-04 07:38] LABS: INR 3.35 (0.86-1.15)
[2021-09-04] MEDS: Carbidopa/Levodop 25/100 MG TAB PO SCH ×2 (07:45→21:44)
[2021-09-04] MEDS: Polyethylene Glycol 3350 17 GM PACKET PO SCH (07:47)
[2021-09-04] MEDS: Nystatin TOP POWDER 15 GM BTL TOPICAL SCH ×3 (07:47→21:46)
[2021-09-04] MEDS ORDERED: Warfarin - No Order Today **NOTE FOLLOW UP ONE (17:00)
[2021-09-04] MEDS: Warfarin DAILY REMINDER **NOTE FOLLOW UP SCH (18:11)
[2021-09-05 06:16] LABS: INR 4.19 (0.86-1.15)
[2021-09-05] MEDS: Polyethylene Glycol 3350 17 GM PACKET PO SCH (10:20)
[2021-09-05] MEDS: Carbidopa/Levodop 25/100 MG TAB PO SCH (10:22)
[2021-09-05] MEDS: Nystatin TOP POWDER 15 GM BTL TOPICAL SCH ×2 (10:23→13:21)
[2021-09-05 11:11] VITALS: BP 102/56
[2021-09-05] MEDS ORDERED: Warfarin - No Order Today **NOTE FOLLOW UP ONE (17:00)
== END 2021-09-05 14:30 | DRG 71 ==
LOC: ED 10:39 → MED 21:36 → SUATTDRO 21:36 → MED 08-27 00:42
PROVIDERS: ADMIT Internal Medicine; ATTEND Internal Medicine

== ENCOUNTER 2021-10-04 11:06 | Inpatient (IN) ==
[2021-10-04] MEDS ORDERED: Cefepime 2 GM in Dextrose 2 GM/50 ML BAG IV ONE (11:50)
[2021-10-04 12:17] LABS: PCO2 Arterial 34 mmHg (35-45); PO2 Arterial 67 mmHg (80-100)
[2021-10-04] MEDS ORDERED: Lorazepam PYXIS KEY PRN (12:30)
[2021-10-04] MEDS ORDERED: LORazepam 2 mg VIAL 1 ml IV PUSH ONE (12:30)
[2021-10-04 12:40] LABS: ABS Lymphocytes 0.7 10^3/ul (1.0-4.8); ABS Monocytes 0.3 10^3/ul (0-0.8); ABS Neutrophils 5.6 10^3/ul (1.5-7.7); Eosinophil % 0.1 %; Hematocrit 37 % (35-47); Hemoglobin 12.3 g/dL (12.0-16.0); Lymphocyte % 10.5 %; Mean Corpuscular HGB Conc 33 g/dL (31-36); Mean Corpuscular Hemoglobin 28 pg (27-31); Mean Corpuscular Volume 85 fL (80-97); Mean Platelet Volume 9.8 fL (7.4-10.4); Nucleated Red Blood Cells % 0.2; Platelet Count 181 10^3/uL (150-450); Red Blood Count 4.39 10^6 /uL (3.70-4.87); Red Cell Distribution Width 16 % (10-15); White Blood Count 6.6 10^3/uL (3.5-10.8)
[2021-10-04 12:49] LABS: Activated Partial Thrombo Time 29.9 seconds (26.0-38.0); INR 1.93 (0.86-1.15)
[2021-10-04 12:55] LABS: ALT 4 U/L (7-52); AST 23 U/L (13-39); Albumin 3.7 g/dL (3.2-5.2); Albumin/Globulin Ratio 1.3 (1-3); Alkaline Phosphatase 118 U/L (35-149); Anion Gap 14 mmol/L (2-11); Blood Urea Nitrogen 98 mg/dL (6-24); C Reactive Protein 44.83 mg/L (<8.01); CO2 Carbon Dioxide 22 mmol/L (22-32); Calcium 9.2 mg/dL (8.6-10.3); Chloride 107 mmol/L (101-111); Globulin 2.8 g/dL (2-4); Glucose 133 mg/dL (70-100); Potassium 4.3 mmol/L (3.5-5.0); Sodium 143 mmol/L (135-145); Total Protein 6.5 g/dL (6.4-8.9); eGFR CKD-EPI 22.6 (>60)
[2021-10-04] MEDS ORDERED: Droperidol 5 MG/2 ML 2 ML VIAL IV ONE (12:56)
[2021-10-04] MEDS ORDERED: Vancomycin 1,500 MG in NS 0.9% 250 ml 250 ML IVPB ONE (13:00)
[2021-10-04 13:01] LABS: Troponin I 0.05 ng/mL (<0.03)
[2021-10-04] MEDS ORDERED: Lactated Ringers 1000 ml BAG 1,000 ML IV SCH ×2 (15:00→18:51)
[2021-10-04] MEDS ORDERED: NS 0.9% 1000 ml BAG 1,000 ML IV SCH (16:45)
[2021-10-04] MEDS: DOXYcycline 100 MG in NS 0.9% 250 ml 250 ML IVPB SCH (18:46)
[2021-10-04] MEDS ORDERED: Albuterol HFA INHALER 8 gm MDI INH PRN (18:52)
[2021-10-05 00:30] LABS: Troponin I 0.04 ng/mL (<0.03)
[2021-10-05] MEDS ORDERED: Enoxaparin 80 MG/0.8 ML SYR SUBCUT SCH (00:30)
[2021-10-05] MEDS: DOXYcycline 100 MG in NS 0.9% 250 ml 250 ML IVPB SCH ×2 (05:18→17:24)
[2021-10-05 06:45] LABS: ABS Lymphocytes 0.4 10^3/ul (1.0-4.8); ABS Monocytes 0.4 10^3/ul (0-0.8); ABS Neutrophils 7.3 10^3/ul (1.5-7.7); Hematocrit 37 % (35-47); Hemoglobin 12.1 g/dL (12.0-16.0); Mean Corpuscular HGB Conc 33 g/dL (31-36); Mean Corpuscular Hemoglobin 28 pg (27-31); Mean Corpuscular Volume 86 fL (80-97); Mean Platelet Volume 9.6 fL (7.4-10.4); Platelet Count 131 10^3/uL (150-450); Red Blood Count 4.33 10^6 /uL (3.70-4.87); Red Cell Distribution Width 16 % (10-15)
[2021-10-05 07:01] LABS: Calcium 9.3 mg/dL (8.6-10.3); Magnesium 2.3 mg/dL (1.9-2.7); Potassium 4.8 mmol/L (3.5-5.0); eGFR CKD-EPI 48.5 (>60)
[2021-10-05] MEDS: SPIRIVA Respimat (tiotropium) 2.5 mcg/inh Inhaler INH SCH (08:01)
[2021-10-05] MEDS: Dexamethasone IV 4 MG/ML VIAL 1 ml VIAL IV SLOW PU SCH (10:30)
[2021-10-05] MEDS ORDERED: Metoprolol Tartrate 5 mg VIAL 5 ml VIAL (1 mg/ml) IV PRN (10:38)
[2021-10-05] MEDS ORDERED: Haloperidol 5 mg/ml SDV IV/IM 5 MG/ML AMP IV SLOW PU PRN (10:43)
[2021-10-05] MEDS: Levothyroxine 100 MCG/5 ML VIAL IV SCH (11:47)
[2021-10-05] MEDS: Metoprolol Tartrate 5 mg VIAL 5 ml VIAL (1 mg/ml) IV SCH ×3 (11:49→22:11)
[2021-10-05] MEDS: cefTRIAXone 1 gm/50 mL NS BAG 1 GM/50 ML BAG IVPB SCH (13:08)
[2021-10-05] MEDS ORDERED: D5W 1/2 NS 1000 ml BAG 1,000 ML IV SCH (15:00)
[2021-10-05] MEDS ORDERED: Enoxaparin 60 MG/0.6 ML SYR SUBCUT SCH (15:00)
[2021-10-05] MEDS: Acetaminophen IV 1 GM/100ML 100 ML IV PRN (16:06)
[2021-10-05 16:41] LABS: Urine Appearance Cloudy; Urine Bilirubin Negative (Negative); Urine Blood 1+ (Negative); Urine Color Yellow; Urine Glucose Negative (Negative); Urine Ketones Trace (Negative); Urine Nitrite Negative (Negative); Urine Protein 2+(100 mg/dL) (Negative); Urine Specific Gravity 1.024 (1.002-1.030); Urine Urobilinogen Negative (Negative)
[2021-10-05 16:50] LABS: Urine Bacteria 1+ (Absent); Urine Red Blood Cell 3+(>10/hpf) (Absent); Urine Squamous Epithelial Cell Present (Absent); Urine White Blood Cell 1+(6-10/hpf) (Absent)
[2021-10-06] MEDS: Levothyroxine 100 MCG/5 ML VIAL IV SCH (05:00)
[2021-10-06] MEDS: Metoprolol Tartrate 5 mg VIAL 5 ml VIAL (1 mg/ml) IV SCH ×4 (05:04→23:01)
[2021-10-06] MEDS: DOXYcycline 100 MG in NS 0.9% 250 ml 250 ML IVPB SCH ×2 (05:13→17:14)
[2021-10-06] MEDS: Enoxaparin 60 MG/0.6 ML SYR SUBCUT SCH ×2 (05:14→17:15)
[2021-10-06 05:38] LABS: ABS Lymphocytes 0.5 10^3/ul (1.0-4.8); ABS Monocytes 0.4 10^3/ul (0-0.8); ABS Neutrophils 7.4 10^3/ul (1.5-7.7); Hematocrit 39 % (35-47); Hemoglobin 12.5 g/dL (12.0-16.0); Lymphocyte % 6.1 %; Mean Corpuscular HGB Conc 32 g/dL (31-36); Mean Corpuscular Hemoglobin 28 pg (27-31); Mean Corpuscular Volume 87 fL (80-97); Mean Platelet Volume 9.6 fL (7.4-10.4); Platelet Count 135 10^3/uL (150-450); Red Blood Count 4.52 10^6 /uL (3.70-4.87); Red Cell Distribution Width 16 % (10-15); White Blood Count 8.2 10^3/uL (3.5-10.8)
[2021-10-06 05:47] LABS: Calcium 9.3 mg/dL (8.6-10.3); Magnesium 2.4 mg/dL (1.9-2.7)
[2021-10-06 05:52] LABS: Phosphorus 2.3 mg/dL (2.5-5.0); eGFR CKD-EPI 69.6 (>60)
[2021-10-06 05:53] LABS: Potassium 5.4 mmol/L (3.5-5.0)
[2021-10-06] MEDS ORDERED: Levothyroxine 100 MCG/5 ML VIAL IV SCH (06:00)
[2021-10-06] MEDS: SPIRIVA Respimat (tiotropium) 2.5 mcg/inh Inhaler INH SCH (07:42)
[2021-10-06] MEDS ORDERED: D5W 1/2 NS 1000 ml BAG 1,000 ML IV SCH (08:00)
[2021-10-06] MEDS: Carbidopa/Levodop 25/100 MG TAB PO SCH ×3 (09:03→22:40)
[2021-10-06] MEDS: Dexamethasone IV 4 MG/ML VIAL 1 ml VIAL IV SLOW PU SCH (09:03)
[2021-10-06] MEDS: D5W 1000 ml BAG 1,000 ML IV SCH (11:40)
[2021-10-06] MEDS: cefTRIAXone 1 gm/50 mL NS BAG 1 GM/50 ML BAG IVPB SCH (13:46)
[2021-10-06 14:12] LABS: Calcium 9.1 mg/dL (8.6-10.3); eGFR CKD-EPI 86.4 (>60)
[2021-10-06 19:46] LABS: CO2 Carbon Dioxide 21 mmol/L (22-32)
[2021-10-06 19:52] LABS: Blood Urea Nitrogen 59 mg/dL (6-24); Glucose 158 mg/dL (70-100); eGFR CKD-EPI 88.2 (>60)
[2021-10-06 20:13] LABS: Chloride 120 mmol/L (101-111); Sodium 148 mmol/L (135-145)
[2021-10-06 21:00] LABS: Anion Gap 7 mmol/L (2-11)
[2021-10-07 01:30] LABS: Calcium 9.2 mg/dL (8.6-10.3); Potassium 4.4 mmol/L (3.5-5.0); eGFR CKD-EPI 87.9 (>60)
[2021-10-07] MEDS: Acetaminophen IV 1 GM/100ML 100 ML IV PRN (02:24)
[2021-10-07] MEDS: Metoprolol Tartrate 5 mg VIAL 5 ml VIAL (1 mg/ml) IV SCH (04:38)
[2021-10-07] MEDS: Enoxaparin 60 MG/0.6 ML SYR SUBCUT SCH ×2 (05:51→17:11)
[2021-10-07] MEDS: D5W 1000 ml BAG 1,000 ML IV SCH ×2 (05:53→21:58)
[2021-10-07] MEDS: DOXYcycline 100 MG in NS 0.9% 250 ml 250 ML IVPB SCH ×2 (05:55→17:11)
[2021-10-07 06:40] LABS: Hematocrit 36 % (35-47); Hemoglobin 11.5 g/dL (12.0-16.0); Mean Corpuscular HGB Conc 32 g/dL (31-36); Mean Corpuscular Hemoglobin 28 pg (27-31); Mean Corpuscular Volume 86 fL (80-97); Mean Platelet Volume 9.3 fL (7.4-10.4); Platelet Count 143 10^3/uL (150-450); Red Blood Count 4.17 10^6 /uL (3.70-4.87); Red Cell Distribution Width 16 % (10-15); White Blood Count 7.1 10^3/uL (3.5-10.8)
[2021-10-07 06:41] LABS: ABS Lymphocytes 0.5 10^3/ul (1.0-4.8); ABS Monocytes 0.3 10^3/ul (0-0.8); ABS Neutrophils 6.3 10^3/ul (1.5-7.7); Lymphocyte % 6.7 %
[2021-10-07 06:48] LABS: INR 1.45 (0.86-1.15)
[2021-10-07 07:05] LABS: eGFR CKD-EPI 88.2 (>60)
[2021-10-07] MEDS: SPIRIVA Respimat (tiotropium) 2.5 mcg/inh Inhaler INH SCH (08:08)
[2021-10-07] MEDS: Carbidopa/Levodop 25/100 MG TAB PO SCH ×3 (11:55→20:47)
[2021-10-07] MEDS: Dexamethasone IV 4 MG/ML VIAL 1 ml VIAL IV SLOW PU SCH (12:11)
[2021-10-07] MEDS: cefTRIAXone 1 gm/50 mL NS BAG 1 GM/50 ML BAG IVPB SCH (12:11)
[2021-10-07 14:24] LABS: Magnesium 1.9 mg/dL (1.9-2.7); Phosphorus 1.5 mg/dL (2.5-5.0); eGFR CKD-EPI 90.5 (>60)
[2021-10-07] MEDS ORDERED: Potassium Phosphate IV 5 MMOLE in NS 0.9% 250 ml 250 ML IVPB ONE (15:30)
[2021-10-08] MEDS: DOXYcycline 100 MG in NS 0.9% 250 ml 250 ML IVPB SCH ×2 (05:27→18:26)
[2021-10-08] MEDS: Enoxaparin 60 MG/0.6 ML SYR SUBCUT SCH ×2 (05:27→17:17)
[2021-10-08] MEDS: SPIRIVA Respimat (tiotropium) 2.5 mcg/inh Inhaler INH SCH (08:06)
[2021-10-08] MEDS: Carbidopa/Levodop 25/100 MG TAB PO SCH ×3 (08:17→20:46)
[2021-10-08] MEDS: Dexamethasone IV 4 MG/ML VIAL 1 ml VIAL IV SLOW PU SCH (08:18)
[2021-10-08 08:23] LABS: ABS Lymphocytes 0.4 10^3/ul (1.0-4.8); ABS Monocytes 0.4 10^3/ul (0-0.8); ABS Neutrophils 4.6 10^3/ul (1.5-7.7); Hematocrit 37 % (35-47); Hemoglobin 11.8 g/dL (12.0-16.0); Lymphocyte % 7.2 %; Mean Corpuscular HGB Conc 32 g/dL (31-36); Mean Corpuscular Hemoglobin 28 pg (27-31); Mean Corpuscular Volume 86 fL (80-97); Mean Platelet Volume 9.6 fL (7.4-10.4); Platelet Count 119 10^3/uL (150-450); Red Blood Count 4.31 10^6 /uL (3.70-4.87); Red Cell Distribution Width 16 % (10-15); White Blood Count 5.4 10^3/uL (3.5-10.8)
[2021-10-08 08:43] LABS: Phosphorus 1.5 mg/dL (2.5-5.0); Potassium 4.1 mmol/L (3.5-5.0); eGFR CKD-EPI 93.4 (>60)
[2021-10-08] MEDS ORDERED: Potassium Phosphate IV 15 MMOLE in NS 0.9% 250 ml 250 ML IVPB ONE (08:55)
[2021-10-08] MEDS: cefTRIAXone 1 gm/50 mL NS BAG 1 GM/50 ML BAG IVPB SCH (14:15)
[2021-10-08] MEDS ORDERED: Magnesium Sulfate IV 3 GM in NS 0.9% 100 ml BAG 100 ML IVPB ONE (15:03)
[2021-10-08] MEDS ORDERED: Magnesium Sulfate 2 GM IV (Premix) IVPB ONE (15:30)
[2021-10-08] MEDS ORDERED: Magnesium Sulfate 1 GM IV 1 GM/100 ML BAG IV ONE (16:30)
[2021-10-08] MEDS: D5W 1000 ml BAG 1,000 ML IV SCH (20:45)
[2021-10-09] MEDS: DOXYcycline 100 MG in NS 0.9% 250 ml 250 ML IVPB SCH (05:18)
[2021-10-09] MEDS: Enoxaparin 60 MG/0.6 ML SYR SUBCUT SCH ×2 (05:18→17:03)
[2021-10-09] MEDS: SPIRIVA Respimat (tiotropium) 2.5 mcg/inh Inhaler INH SCH (07:18)
[2021-10-09] MEDS: Dexamethasone IV 4 MG/ML VIAL 1 ml VIAL IV SLOW PU SCH (09:31)
[2021-10-09] MEDS: Carbidopa/Levodop 25/100 MG TAB PO SCH ×3 (09:32→20:18)
[2021-10-09 09:57] LABS: Calcium 8.4 mg/dL (8.6-10.3); Magnesium 2.1 mg/dL (1.9-2.7); Potassium 3.7 mmol/L (3.5-5.0); eGFR CKD-EPI 96.7 (>60)
[2021-10-10 06:12] LABS: Calcium 8.5 mg/dL (8.6-10.3); Potassium 3.8 mmol/L (3.5-5.0); eGFR CKD-EPI 93.4 (>60)
[2021-10-10] MEDS ORDERED: Potassium Phosphate IV 15 MMOLE in NS 0.9% 250 ml 250 ML IVPB ONE (07:19)
[2021-10-10] MEDS ORDERED: D5W 1000 ml BAG 1,000 ML IV SCH (08:00)
[2021-10-10] MEDS: SPIRIVA Respimat (tiotropium) 2.5 mcg/inh Inhaler INH SCH (08:14)
[2021-10-10] MEDS: Dexamethasone IV 4 MG/ML VIAL 1 ml VIAL IV SLOW PU SCH (09:00)
[2021-10-10] MEDS: Carbidopa/Levodop 25/100 MG TAB PO SCH (09:00)
[2021-10-10 16:22] VITALS: BP 127/79
[2021-10-10] MEDS: Enoxaparin 60 MG/0.6 ML SYR SUBCUT SCH (19:18)
[2021-10-11] MEDS: Dexamethasone IV 4 MG/ML VIAL 1 ml VIAL IV SLOW PU SCH (08:15)
== END 2021-10-11 14:30 | disposition hospice, home (50) | DRG 177 ==
LOC: ED 11:06 → SUATTDRO 16:16 → EDHOLD 16:16 → MED 20:57
PROVIDERS: ADMIT Student in an Organized Health Care Education/Training Program; ATTEND Internal Medicine